=== PATIENT | female | born 1995 | race Caucasian/White ===

== ENCOUNTER 2018-02-27 13:33 | Day surgery (SDC) | payer OTHER ==
[2018-02-27 14:13] LABS: BILIRUBIN,URINE NEGATIVE (NEGATIVE); GLUCOSE, URINE (UA) NEGATIVE (NEGATIVE); KETONES,URINE (UA) NEGATIVE (NEGATIVE); LEUKOCYTE ESTERASE, URINE NEGATIVE (NEGATIVE); NITRITE,URINE NEGATIVE (NEGATIVE); OCCULT BLOOD,URINE LARGE (NEGATIVE); PROTEIN,URINE NEGATIVE (NEGATIVE); UROBILINOGEN,URINE 0.2 (NORMAL) E.U./dL (NORMAL)
[2018-02-27 14:15] LABS: HCG UR QUAL NEGATIVE
[2018-02-27 14:16] LABS: CLARITY,URINE SL. CLOUDY (CLEAR)
[2018-02-27 14:25] LABS: BACTERIA,URINE Few /HPF (None Seen); RBC,URINE 0-5 /HPF (0-5); SQUAMOUS EPITHELIAL CELL,UR FEW Squamous (<= Few)
[2018-02-27] MEDS ORDERED: IBUPROFEN 800 MG TABLET PO STA (14:31)
[2018-02-27 14:36] LABS: BASOPHILS % (AUTO) 0.6 %; EOSINOPHILS # (AUTO) 0.1 10^3/uL (0.0-0.7); EOSINOPHILS % (AUTO) 1.4 %; HGB - HEMOGLOBIN 14.3 g/dL (12.0-16.0); LYMPHOCYTES # (AUTO) 2.4 10^3/uL (1.5-3.5); LYMPHOCYTES % (AUTO) 33.1 %; MEAN CORPUSCULAR HGB CONC 34.3 g/dL (32.0-36.0); MEAN CORPUSCULAR VOLUME 90.4 fL (81.0-99.0); MEAN PLATELET VOLUME 6.7 fL (7.9-10.8); MONOCYTES # (AUTO) 0.5 10^3/uL (0.0-1.0); MONOCYTES % (AUTO) 7.3 %; NEUTROPHILS # (AUTO) 4.2 10^3/uL (1.5-6.6); NEUTROPHILS % (AUTO) 57.6 %; PLT - PLATELET COUNT 388 10^3/uL (130-450); RED BLOOD COUNT 4.61 10^6/uL (4.20-5.40); RED CELL DISTRIBUTION WIDTH 13.7 % (12.0-15.0); WHITE BLOOD COUNT 7.3 x10^3/uL (4.8-10.8)
--- NOTE | 2018-02-27 14:36 | ED Physician Documentation ---
History of Present Illness - Stated complaint Stated Complaint: CRAMPS/FEMALE - Chief complaint Chief Complaint: Abd Pain - Additonal information Additional information: hx from pt 22 y/o f denies preg -has implanted control to ED today with right pelvic pain and heavy vag bleeding (change pad or tampon q2h) for 4 days no fever Review of Systems Constitutional: denies: Fever, Chills GI: reports: Abdominal Pain : reports: Vaginal bleeding. denies: Now EGA Endocrine: denies: Easy bruising / bleeding Immunocompromised: denies: Immunocompromised PD PAST MEDICAL HISTORY - Present Medications Home Medications: Ambulatory Orders Medication Instructions Recorded Confirmed No Known Home Medications 02/27/18 02/27/18 - Allergies Allergies/Adverse Reactions: Allergies Allergy/AdvReac Type Severity Reaction Status Date / Time bee venom protein (honey bee) Allergy Anaphylaxis Verified 02/27/18 13:52 Sulfa (Sulfonamide Allergy Emesis Verified 02/27/18 13:52 Antibiotics) PD ED PE NORMAL - Vitals Vital signs reviewed: Yes - Cardiac Cardiac: RRR - Respiratory Respiratory: No respiratory distress - Abdomen Abdomen: Soft, Non tender - Female Female : Construction Trades Teacher present (nurse Faina), Other (dark blood and some clots in vault seem to be coming for cervix, no lac identified, os closed, no FB seen, no dc, cx taken) - Derm Derm: Normal color - Neuro Neuro: Alert and oriented X 3 Results - Vitals Vitals: Vital Signs - 24 hr 02/27/18 02/27/18 02/27/18 13:48 16:00 17:52 Temperature 36.9 C 36.8 C 36.9 C Heart Rate 78 77 77 Respiratory 18 18 20 Rate Blood Pressure 134/81 H 130/78 144/92 H O2 Saturation 99 99 99 Oxygen O2 Source Room air - Labs Labs: Laboratory Tests 02/27/18 02/27/18 02/27/18 13:55 13:55 14:32 WBC 7.3 RBC 4.61 Hgb 14.3 Hct 41.7 MCV 90.4 MCH 31.0 MCHC 34.3 RDW 13.7 Plt Count 388 MPV 6.7 L Neut # (Auto) 4.2 Lymph # (Auto) 2.4 [place] # (Auto) 0.5 Eos # (Auto) 0.1 Baso # (Auto) 0.0 Absolute Nucleated RBC 0.00 Nucleated RBC % 0.0 Sodium Potassium Chloride Carbon Dioxide Anion Gap BUN Creatinine Estimated GFR (MDRD) Glucose Calcium Total Bilirubin AST ALT Alkaline Phosphatase Total Protein Albumin Globulin Albumin/Globulin Ratio Lipase HCG, Quant Urine Color YELLOW Urine Clarity SL. CLOUDY Urine pH 6.0 Ur Specific [place] 1.015 1.015 Urine Protein NEGATIVE Urine Glucose (UA) NEGATIVE Urine Ketones NEGATIVE Urine Occult Blood LARGE H Urine Nitrite NEGATIVE Urine Bilirubin NEGATIVE Urine Urobilinogen 0.2 (NORMAL) Ur Leukocyte Esterase NEGATIVE Urine RBC 0-5 Urine WBC 0-3 Ur Squamous Epith Cells FEW Squamous Urine Bacteria Few Ur Microscopic Review INDICATED Urine Culture Comments NOT INDICATED Urine HCG, Qual NEGATIVE 02/27/18 02/27/18 14:32 14:33 WBC RBC Hgb Hct MCV MCH MCHC RDW Plt Count MPV Neut # (Auto) Lymph # (Auto) [place] # (Auto) Eos # (Auto) Baso # (Auto) Absolute Nucleated RBC Nucleated RBC % Sodium 135 Potassium 3.7 Chloride 104 Carbon Dioxide 25 Anion Gap 6.0 BUN 12 Creatinine 0.8 Estimated GFR (MDRD) 91 Glucose 83 Calcium 9.2 Total Bilirubin 0.4 AST 17 ALT 16 Alkaline Phosphatase 92 Total Protein 7.7 Albumin 4.4 Globulin 3.3 Albumin/Globulin Ratio 1.3 Lipase 24 HCG, Quant < 0.60 Urine Color Urine Clarity Urine pH Ur Specific [place] Urine Protein Urine Glucose (UA) Urine Ketones Urine Occult Blood Urine Nitrite Urine Bilirubin Urine Urobilinogen Ur Leukocyte Esterase Urine RBC Urine WBC Ur Squamous Epith Cells Urine Bacteria Ur Microscopic Review Urine Culture Comments Urine HCG, Qual - Rads (name of study) pelvic with TV and doppler Radiology: See rad report (complex mass R ovary 6 cm mixed cyst solid with only periph flow and radia is concerned for int torsion, atypical hemorhagic cyst endometroioma is also possible) PD MEDICAL DECISION MAKING - ED course ED course: 6 cm atypical mass with concern for int torsion and or hemorrhage serum quant HCG neg - not ectopic called CRUSHER OPERATOR at 1630 Dr Sheffield promptly to the ER and will take the pt to surgery Departure - Departure Disposition: ED Transfer to [facility] Clinical Impression: Ovarian mass, right Condition: Good
[2018-02-27 14:49] LABS: ALBUMIN 4.4 g/dL (3.2-5.5); ALBUMIN/GLOBULIN RATIO 1.3 (1.0-2.2); BILIRUBIN,TOTAL 0.4 mg/dL (0.2-1.0); CALCIUM 9.2 mg/dL (8.5-10.3); CREATININE 0.8 mg/dL (0.4-1.0); TOTAL PROTEIN 7.7 g/dL (6.7-8.2)
[2018-02-27] MEDS ORDERED: KETOROLAC 60 MG/2 ML VIAL IVP STA (14:54)
[2018-02-27] MEDS ORDERED: KETOROLAC 60 MG/2 ML VIAL IM STA (15:06)
[2018-02-27] MEDS ORDERED: oxyCODONE 5 MG TABLET PO STA (16:05)
--- NOTE | 2018-02-27 16:23 | Ultrasound Report ---
Reason: pelvic pain and bleeding Procedure Date: 02/27/2018 Accession Number: [id number] / [id number] Procedure: US - Pelvic w/Transvag+Doppler Comp CPT Code: FULL RESULT: EXAM: PELVIC ULTRASOUND EXAM DATE: 02/27/2018 03:49 PM. CLINICAL HISTORY: Pelvic pain /right lower quadrant pain for 1 week and heavy vaginal bleeding. Negative serum beta hCG. COMPARISON: None. TECHNIQUE: Realtime transabdominal pelvic scan performed to identify the uterus and adnexa and as an overview of other pelvic structures, followed by transvaginal scan to provide greater detail of the uterus and adnexa, with static image documentation. FINDINGS: Uterus: 7 cm, volume 38.5 cc. Anteverted position. Normal overall size and echotexture. Masses: None. Endometrium: 3 mm. Normal. Cervix: Unremarkable. Right Ovary: 6 x 5 x 6.5 cm, volume 101 cc. Complex mixed cystic and solid appearing mass of the ovary; volume of the finding is roughly 50% fluid and 50% isoechoic/solid-appearing material. There is flow within the thin periphery of this complex mass with minimal to absent vascular signal within the solid/echogenic portions of the mass. Left Ovary: 3 x 1.4 x 1.5 cm, volume 3.3 cc. Normal echotexture and blood flow. Free Fluid: None. Other: None. IMPRESSION: 6 cm complex cystic solid appearing mass of the right ovary as described. Although flow is noted in the periphery, sequela of an ovarian torsion is not excluded by imaging. Atypical hemorrhagic cyst/endometrioma also possible. RADIA The above findings were discussed with oDminique Zimmerman by Dr. Samuel Perez at 16:21 hrs on 02/27/18.
[2018-02-27] MEDS ORDERED: ONDANSETRON 4 MG/2 ML VIAL IVP STA (16:38)
[2018-02-27] MEDS ORDERED: MORPHINE 2 MG/ML CARPUJECT IVP STA (16:38)
[2018-02-27] MEDS ORDERED: SODIUM CHLORIDE 0.9% 1,000 ML IV ONE (16:38)
[2018-02-27] MEDS ORDERED: GABAPENTIN 100 MG CAPSULE PO STA (18:04)
[2018-02-27] MEDS ORDERED: CELECOXIB 100 MG CAPSULE PO STA (18:04)
--- NOTE | 2018-02-27 18:09 | ANESTHESIA ---
Pre-Anesthesia VS, & Labs - Diagnosis R lower quad pain - Procedure diagnostic laparoscopy Vital Signs: Temp Pulse Resp BP Pulse Ox 36.9 C 77 20 144/92 H 99 02/27/18 17:52 02/27/18 17:52 02/27/18 17:52 02/27/18 17:52 02/27/18 17:52 Height 5 ft 6 in Weight (kg) 89.811 kg Body Mass Index 31.9 - NPO Other (pizza@1300) Last Fluid Intake: water@1700 sips - Is Patient ?: No - Lab Results Current Lab Results: Laboratory Tests 02/27/18 14:33: HCG, Quant < 0.60 02/27/18 14:32: Sodium 135, Potassium 3.7, Chloride 104, Carbon Dioxide 25, Anion Gap 6.0, BUN 12, Creatinine 0.8, Estimated GFR (MDRD) 91, Glucose 83, Calcium 9.2, Total Bilirubin 0.4, AST 17, ALT 16, Alkaline Phosphatase 92, Total Protein 7.7, Albumin 4.4, Globulin 3.3, Albumin/Globulin Ratio 1.3, Lipase 24 02/27/18 14:32: WBC 7.3, RBC 4.61, Hgb 14.3, Hct 41.7, MCV 90.4, MCH 31.0, MCHC 34.3, RDW 13.7, Plt Count 388, MPV 6.7 L, Neut # (Auto) 4.2, Lymph # (Auto) 2.4, [place] # (Auto) 0.5, Eos # (Auto) 0.1, Baso # (Auto) 0.0, Absolute Nucleated RBC 0.00, Nucleated RBC % 0.0 Lab results reviewed: Yes Fish Bones: 02/27/18 14:32 02/27/18 14:32 Home Medications and Allergies Home Medications: Ambulatory Orders No Known Home Medications 02/27/18 No Known Home Medications 02/27/18 Allergies/Adverse Reactions: Allergies Allergy/AdvReac Type Severity Reaction Status Date / Time bee venom protein (honey bee) Allergy Anaphylaxis Verified 02/27/18 13:52 Sulfa (Sulfonamide Allergy Emesis Verified 02/27/18 13:52 Antibiotics) Anes History & Medical History - Anesthetic History Anesthesia Complications: reports: No previous complications Family history of Anesthesia Complications: Denies Family history of Malignant Hyperthermia: Denies - Medical History Smoking Status: Current every day smoker Exam General: Alert, Oriented x3, Cooperative Dental: WNL Mouth Opening: Greater than 4 Fingerbreadths Neck Mobility: Normal Mallampati classification: II Thyromental Distance: greater than 6 cm Respiratory: Lungs clear, Normal breath sounds, No respiratory distress Cardiovascular: Regular rate Neurological: Normal speech Mental/Cognitive Status: Alert/Oriented X3, Normal for patient Cognitive Status: Within normal limits Plan Anesthesia Type: General Consent for Procedure(s) Verified and Reviewed: Yes Code Status: Attempt Resuscitation ASA classification: 2-Mild systemic disease Is this case an emergency?: Yes
[2018-02-27] MEDS ORDERED: BUPIVACAINE 0.5%-EPI 1:200000 PF 30 ML VIAL ONE (18:18)
--- NOTE | 2018-02-27 18:59 | PREOP HISTORY & PHYSICAL ---
DATE OF ADMISSION: 02/27/2018 Physician: Sally Sheffield DO FACOG IDENTIFICATION: This is a 22-year-old G0, LMP 01/19/2018. HISTORY OF PRESENT ILLNESS: This is a patient of the [facility] [employer] who presented with complaints of pain for over a week. Approximately 10 days ago, she noted some pain in her right side. Then, the preceding next 2 days, the pain became more and more steady. About a week went by, and she started having some vaginal bleeding. Although that was approximately 3 days ago. The pain became so intense to the point that it felt like, sharp, squeezing pressure-like pain in the right lower quadrant. She became dizzy and nauseated because of this pain. This pain was similar to an episode she had in [place] in 2013. This spontaneously resolved. Patient did want a workup for this pain, but no one thought that there was enough evidence to proceed with a further workup. Here in the emergency department the patient has been getting oral oxycodone as well as IV morphine. This has dulled the pain, but she still has pretty significant pain. She denies any vomiting, constipation or diarrhea. She also denies any fevers or chills. She is accompanied today with her friend Rigoberto. PAST MEDICAL HISTORY: Obesity, otherwise none. She denies hypertension, diabetes, anxiety, depression, or asthma. PAST SURGICAL HISTORY: Dental surgery. ALLERGIES 1. SULFA, TO WHICH SHE HAS VOMITING. 1. BEE VENOM, TO WHICH SHE HAS ANAPHYLAXIS. MEDICATIONS: 05/07/2015 Nexplanon. SOCIAL HISTORY: She does vape and uses about 1 pot of vaping material in 2 weeks. She denies any alcohol or illicit drug use. 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 Her friend Rigoberto also is in the [employer] and is an marine engineering technicians. PAST OBSTETRICAL HISTORY: She is nulligravida, and she does not want any children. PAST GYNECOLOGICAL HISTORY: She has never had a Pap smear. She was treated for gonorrhea in November 2016. She denies any pelvic inflammatory disease. Patient states that she does have irregular spotting on the Nexplanon. However, previous to the Nexplanon, she had monthly menses that happened very consistently. However, her periods are very heavy in which she would change a tampon every 2 hours. Patient also had cramping pain, which was described as a 4-5/10. Ibuprofen did help, so that the patient could go on her daily activities. FAMILY HISTORY: Maternal grandmother had a hysterectomy for unknown reasons. REVIEW OF SYSTEMS: Negative unless otherwise stated. OBJECTIVE VITAL SIGNS: Temperature is 36.8, heart rate 77, respiratory rate 18, blood pressure 130/78, O2 saturation 99%. GENERAL: Patient is an obese, very pleasant, female. She is alert and oriented x3. HEENT: Within normal limits. HEART: Rate is regular. No murmurs or rubs. LUNGS: Lungs are clear to auscultation bilaterally. ABDOMEN: Soft, but very tender. No peritoneal signs. EXTREMITIES: She does have multiple tattoos. LABORATORY DATA: Show a white count of 7.3, H and H of 14.3 and 41.7, platelets 388. A urinalysis is negative as well as a urine test. Potassium 3.7, creatinine 0.8, glucose 83, AST 17, ALT 16. Pelvic ultrasound revealed a uterus at 7 cm and anteverted. Endometrium is 3 mm. Right ovary measures 6 x 5 x 6.5 cm complex mixed cystic and solid appearing mass of the ovary, with a finding is roughly 50% fluid and 50% isoechoic/solid appearing material. There is flow within the thin periphery of this complex mass with minimal to absent vascular signal within the solid/echogenic portions of the mass. Left ovary measures 3 x 1.4 x 1.5 cm. Normal echotexture and blood flow. Free fluid, none. ASSESSMENT 1. A 22-year-old G0. 2. Right ovarian mass. 3. Right ovarian torsion. PLAN 1. I recommend to the patient that she proceed to a diagnostic laparoscopy with a possible right ovarian cystectomy. Included in the discussion were the risk of hemorrhage, infection, damage to surrounding organs, which may include inadvertent laceration, cauterization or ligation of the adjacent intestines, ureters, and bowels. Furthermore, at this procedure, although I would like to avoid this, she may have to have an oophorectomy, depending on how much ovarian tissue is present and its location. We did reassure the patient that she only needs one ovary to have normal ovarian function and potential for reproduction. After the patient's questions were answered to her satisfaction, she verbalized her desire to proceed with surgery. Consent forms have been signed. 2. Anticipate sending the patient home later this evening with a prescription of Vicodin for breakthrough pain that ibuprofen and Tylenol do not take care of. 3. I anticipate seeing the patient in 2 weeks for routine postop visit. 4. Anticipate calling the patient's stepfather, Lb, and giving them an update on their daughter's condition. TD: 02/27/2018 18:14 ROD
[2018-02-27] MEDS ORDERED: CELECOXIB 100 MG CAPSULE PO SCH (19:00)
[2018-02-27] MEDS ORDERED: GABAPENTIN 400 MG CAPSULE PO SCH (19:00)
[2018-02-27] MEDS ORDERED: ACETAMINOPHEN 1,000 MG/100 ML 100 ML IV ONE (19:30)
[2018-02-27] MEDS ORDERED: PROPOFOL 200 MG/20 ML VIAL IVP ONE (19:30)
[2018-02-27] MEDS ORDERED: NEOSTIGMINE 1 MG/1 ML 10 ML MDV IVP ONE (19:30)
[2018-02-27] MEDS ORDERED: ONDANSETRON 4 MG/2 ML VIAL IVP ONE (19:30)
[2018-02-27] MEDS ORDERED: MIDAZOLAM 2 MG/2 ML VIAL IVP ONE (19:30)
[2018-02-27] MEDS ORDERED: LIDOCAINE-MPF 2% 5 ML VIAL IM ONE (19:30)
[2018-02-27] MEDS ORDERED: fentaNYL 100 MCG/2 ML VIAL IVP ONE (19:30)
[2018-02-27] MEDS ORDERED: ROCURONIUM 50 MG/5 ML VIAL IVP ONE (19:30)
[2018-02-27] MEDS ORDERED: SUCCINYLCHOLINE 200 MG/10 ML VIAL IVP ONE (19:30)
[2018-02-27] MEDS ORDERED: DEXAMETHASONE 4 MG/ML VIAL IVP ONE (19:30)
[2018-02-27] MEDS ORDERED: GLYCOPYRROLATE 1 MG/5 ML VIAL IVP ONE (19:30)
[2018-02-27] MEDS ORDERED: BUPIVACAINE 0.5%-EPI 1:200000 PF 30 ML VIAL SUBQ ONE ×2 (19:32)
[2018-02-27] MEDS ORDERED: LACTATED RINGERS 1,000 ML IV ONE ×2 (20:28→20:55)
[2018-02-27] MEDS ORDERED: ONDANSETRON 4 MG/2 ML VIAL IVP PRN (20:34)
[2018-02-27] MEDS ORDERED: HYDROcod/ACETAM 5/325 MG TABLET PO PRN (20:34)
[2018-02-27] MEDS ORDERED: LORazepam 2 MG/ML VIAL IVP PRN (20:34)
--- NOTE | 2018-02-27 20:34 | OPERATIVE REPORT ---
Operative Report - Other Other Information/Narrative: Date of operation: 02/27/2018 Surgeon: Sally Sheffield DO FACOG Cloth Beamer: None Anesthesiology Medical Doctor: Terell An CRNA Anesthesia: GET Pre-op Dx: 1. 22 yo G0 2. Right ovarian mass 3. Right ovarian torsion Post-op Dx: 1. 22 yo G0 2. Right ovarian mass Procedure: Laparoscopic right ovarian cystectomy Findings: Normal uterus, bilateral fallopian tubes, and left ovary. Enlarged right ovary with cystic mass. Normal appendix and liver edge. Specimens: Right cyst wall Drains: None EBL: 20 mL Complications: None [id number]
[2018-02-27] MEDS: HYDROmorphone 1 MG/ML CARPUJECT ONE ×2 (20:39→20:50)
[2018-02-27] MEDS: fentaNYL 100 MCG/2 ML VIAL ONE ×3 (21:01→21:33)
[2018-02-27] MEDS ORDERED: HYDROcod/ACETAM 5/325 MG TABLET ONE (21:31)
[2018-02-27] MEDS: HYDROmorphone 0.5 MG/0.5 ML SYRINGE IVP PRN (23:00)
[2018-02-28] MEDS: HYDROmorphone 0.5 MG/0.5 ML SYRINGE IVP PRN ×3 (00:07→02:24)
[2018-02-28] MEDS ORDERED: SODIUM CHLORIDE FLUSH 0.9% 10 ML SYRINGE ONE (02:29)
[2018-02-28 03:35] VITALS: BP 117/63
--- NOTE | 2018-02-28 05:26 | OPERATIVE REPORT ---
DATE OF OPERATION: 02/27/2018 PREOPERATIVE DIAGNOSES 1. A 22-year-old G0. 2. Right ovarian mass. 3. Right ovarian torsion. POSTOPERATIVE DIAGNOSES 1. A 22-year-old G0. 2. Right ovarian mass. PROCEDURE: Laparoscopic right ovarian cystectomy. SURGEON: Sally Sheffield D.O., FACOG DEFLASH AND WASH OPERATOR: None. PROFESSIONAL DEVELOPMENT DIRECTOR: Terell An CRNA. ANESTHESIA: General endotracheal tube. FINDINGS: Normal uterus, bilateral fallopian tubes and left ovary. Enlarged right ovary with cystic mass. Normal appendix and liver edge. No ovarian torsion. SPECIMENS: Right cyst wall. DRAINS: None. ESTIMATED BLOOD LOSS: 20 mL COMPLICATIONS: None. BRIEF HISTORY: Kemi is a patient of the [facility] who presented to the emergency department with complaints of right lower quadrant pain. Workup showed that she was not , but that there was a large, 6 cm right ovary. There was a concern for ovarian torsion as there was little to no blood flow. I discussed with Kemi the risks, benefits, alternatives, indications, and expectations of a diagnostic laparoscopy with possible right ovarian cystectomy. Included in the discussion were the risks of hemorrhage, infection, damage to surrounding organs, which may include but are not limited to an inadvertent laceration, cauterization or ligation of the adjacent ureters, intestines and bladder. Furthermore, with the surgery there is a possibility that I might have to perform an oophorectomy on the right side. I would prefer not to do this, but only would do it as a last ditch effort. After patient's questions were answered to her satisfaction, she verbalized her desire to proceed with surgery. Consent forms have been signed. OPERATION IN DETAIL: Patient was identified, consented and taken to the operating room where IV access was already in place. She was then given sequential compression devices, which were placed on her lower extremities and turned on. The bladder was then drained with an in and out catheter. Patient was given satisfactory general endotracheal tube anesthesia. Patient was then prepped and draped in normal sterile fashion in the supine position. A timeout was performed which correctly identified the patient, site of the procedure and the procedures themselves. Three laparoscopic port sites were first identified. A 5 mm port was in the subumbilical fold and another 5 mm port in the right lower quadrant 2 fingerbreadths superior and medial to the anterior superior iliac spine, and then a 12 mm port in the left lower quadrant after finding the respective anterior superior iliac spine and then moving again 2 fingerbreadths medial and superior to this location. These port sites were then injected with 0.25% bupivacaine with epinephrine. A total of 20 mL was used. Stab incisions were made. Entrance to the abdomen was first made with a Visiport trocar in the subumbilical fold. No damage to intra-abdominal organ was noted. Insufflation was then proceeded and a satisfactory pneumoperitoneum obtained. Two ports were placed under direct visualization of the camera. Exploration of the pelvis revealed a normal uterus, bilateral fallopian tubes and left ovary. There was a very large right ovary, as described on the ultrasound. The appendix and liver edge did look normal. An incision was made in the thinnest portion of the ovary. The cyst was inadvertently lacerated and large amount of thin, bloody liquid was seen. This was drained with the suction. After the ovarian cyst was decompressed, the cystic wall was then bluntly dissected off the ovary. Specimen was then sent off to Pathology. The ovary was still noted to be having some oozing and Surgicel was placed in the bed of the ovarian cystectomy. Hemostasis was noted. At this point in time, the procedure had been completed. All instruments were removed out of the abdomen and the CO2 was allowed to egress into the atmosphere, relieving the pneumoperitoneum. The 12 mm port site was closed with a 0 Vicryl using the Doug-Pranav closure system. All laparoscopic port sites were then closed with 4-0 Monocryl in subcuticular fashion. Dermabond was finally placed on top. Patient tolerated the procedure well and was taken back to recovery room in stable condition. All sponge, lap, and needle counts were correct x3 as per nurse's report. Patient will be discharged to home later today after postoperative criteria are met. She is to see me in 2 weeks, and will be given a prescription for Vicodin for breakthrough pain that ibuprofen or Tylenol does not take care of. TD: 02/27/2018 20:44 ROD
== END 2018-02-28 03:58 | disposition home or self-care (01) ==
LOC: ED 13:33 → SDS 17:41 → MS2 21:45 → SDS 02-28 03:58
PROVIDERS: ATTEND Obstetrics & Gynecology
PROC: 0UB04ZZ Excision of Right Ovary, Percutaneous Endoscopic Approach (ICD-10-PCS; principal; 2018-02-27 19:00)
DX: N83.01 Follicular cyst of right ovary (principal); N92.0 Excessive and frequent menstruation with regular cycle; E66.9 Obesity, unspecified; F17.290 Nicotine dependence, other tobacco product, uncomplicated; Z68.31 Body mass index [BMI] 31.0-31.9, adult; Z86.19 Personal history of other infectious and parasitic diseases; Z79.899 Other long term (current) drug therapy
CPT/HCPCS: 36415; 58662; 76830; 76856; 80053; 81001; 81025; 83690; 84702; 85025; 87491; 87591; 93975; 96361; 96372; 96374; 99283; 99284; A9270; J0131; J0330; J1170; J2060; J7120; 81003; 87086

== ENCOUNTER 2018-03-06 18:37 | Outpatient (CLI) | payer OTHER | END 2018-03-06 18:38 | disposition critical access hospital (66) | LOC: EMS 18:37 | PROVIDERS: ATTEND Surgery | DX: R55 Syncope and collapse (principal) ==

== ENCOUNTER 2018-03-06 18:58 | Emergency (ER) | payer OTHER ==
[2018-03-06] MEDS ORDERED: SODIUM CHLORIDE 0.9% 1,000 ML IV ONE (19:43)
[2018-03-06] MEDS ORDERED: ONDANSETRON 4 MG/2 ML VIAL IVP STA (19:47)
[2018-03-06] MEDS ORDERED: HYDROmorphone 1 MG/ML CARPUJECT IVP STA (19:47)
--- NOTE | 2018-03-06 19:49 | ED Physician Documentation ---
PD HPI ABD PAIN - Stated complaint Stated Complaint: SYNCOPE - Chief complaint Chief Complaint: Abd Pain - History obtained from History obtained from: Patient, Friend - History of Present Illness Timing - onset: Today (She is 7 days out from a laparoscopic ovarian cystectomy due to torsion. She has had persistent pain ever since but not worsening per se. She has light vaginal bleeding. Today she was in a hot shower and she got dizzy and passed out. There was no injury.) Review of Systems Constitutional: denies: Fever, Chills Cardiac: denies: Chest pain / pressure, Palpitations Respiratory: denies: Dyspnea, Cough PD PAST MEDICAL HISTORY - Past Medical History Past Medical History: No Cardiovascular: None Respiratory: None Neuro: None Endocrine/Autoimmune: None GI: None RETAIL ACCOUNT MANAGER: None : None HEENT: None Psych: None Musculoskeletal: None Derm: None - Past Surgical History Past Surgical History: No /RETAIL ACCOUNT MANAGER: Other - Present Medications Home Medications: Ambulatory Orders Medication Instructions Recorded Confirmed Morphine Ir [Ms Ir] 15 mg PO Q6H PRN #20 tablet 03/06/18 Ondansetron HCl [Zofran] 4 mg PO 03/06/18 Ondansetron Odt [Zofran] 4 mg TL Q6H PRN #10 tablet 03/06/18 oxyCODONE [Roxicodone] 10 mg PO Q6H 03/06/18 03/06/18 - Allergies Allergies/Adverse Reactions: Allergies Allergy/AdvReac Type Severity Reaction Status Date / Time bee venom protein (honey bee) Allergy Anaphylaxis Verified 03/06/18 19:08 Sulfa (Sulfonamide Allergy Emesis Verified 03/06/18 19:08 Antibiotics) - Social History Does the pt smoke?: Yes Smoking Status: Current every day smoker Does the pt drink ETOH?: No Does the pt have substance abuse?: No - Immunizations Immunizations are current?: Yes - POLST Patient has POLST: No PD ED PE NORMAL - Vitals Vital signs reviewed: Yes - General General: Alert and oriented X 3, No acute distress - HEENT HEENT: PERRL, EOMI - Neck Neck: Supple, no meningeal sign, No bony TTP - Cardiac Cardiac: RRR, No murmur - Respiratory Respiratory: No respiratory distress, Clear bilaterally - Abdomen Abdomen: Normal bowel sounds, Soft, Non tender, Other (Lap scopic sites clean dry and intact with Dermabond in place) - Extremities Extremities: No edema, No calf tenderness / cord - Neuro Neuro: Alert and oriented X 3, Normal speech - Psych Psych: Normal mood, Normal affect Results - Vitals Vitals: Vital Signs - 24 hr 03/06/18 03/06/18 19:03 21:51 Temperature 36.3 C L 36.6 C Heart Rate 69 79 Respiratory 18 20 Rate Blood Pressure 123/85 H 123/79 O2 Saturation 100 100 Oxygen O2 Source Room air - EKG (time done) 2008 Rate: Rate (enter#) (69) Rhythm: NSR [place]: Normal Intervals: Normal NE QRS: Normal Ischemia: Normal ST segments Computer interpretation: Agree with computer - Labs Labs: Laboratory Tests 03/06/18 03/06/18 03/06/18 20:10 20:10 21:03 WBC 16.1 H RBC 4.54 Hgb 14.6 Hct 41.2 MCV 90.8 MCH 32.1 H MCHC 35.4 RDW 13.1 Plt Count 412 MPV 6.9 L Neut # (Auto) 13.8 H Lymph # (Auto) 1.4 L [place] # (Auto) 0.8 Eos # (Auto) 0.1 Baso # (Auto) 0.0 Absolute Nucleated RBC 0.00 Nucleated RBC % 0.0 Sodium 135 Potassium 3.9 Chloride 101 Carbon Dioxide 28 Anion Gap 6.0 BUN 11 Creatinine 0.8 Estimated GFR (MDRD) 91 Glucose 104 H Calcium 9.6 Total Bilirubin 0.5 AST 19 ALT 32 Alkaline Phosphatase 79 Total Protein 8.0 Albumin 4.7 Globulin 3.3 Albumin/Globulin Ratio 1.4 Lipase 24 Urine Color YELLOW Urine Clarity CLEAR Urine pH 6.0 Ur Specific [place] 1.015 Urine Protein NEGATIVE Urine Glucose (UA) NEGATIVE Urine Ketones NEGATIVE Urine Occult Blood TRACE-LYSE Urine Nitrite NEGATIVE Urine Bilirubin NEGATIVE Urine Urobilinogen 0.2 (NORMAL) Ur Leukocyte Esterase NEGATIVE Ur Microscopic Review NOT INDICATED Urine Culture Comments NOT INDICATED Urine HCG, Qual NEGATIVE PD MEDICAL DECISION MAKING - ED course ED course: 22-year-old woman presents with postoperative pain and a syncopal episode probably multifactorial from dehydration due to poor oral intake and pelvic pain. Workup demonstrates unremarkable CBC and vital signs and Feeling better after pain medications and and IV fluids here. Departure - Departure Disposition: 01 Home, Self Care Clinical Impression: Pelvic pain Syncope Qualifiers: Syncope type: vasovagal syncope Qualified Code(s): R55 - Syncope and collapse Condition: Good Record reviewed to determine appropriate education?: Yes Instructions: ED Syncope Vasovagal Prescriptions: Morphine Ir [Ms Ir] 15 mg PO Q6H PRN #20 tablet PRN Reason: Pain Ondansetron Odt [Zofran] 4 mg TL Q6H PRN #10 tablet PRN Reason: Nausea / Vomiting Comments: Call your doctor to arrange a follow-up appointment, make the next available appointment. In the interim, return anytime if worse or if new symptoms develop.
[2018-03-06 20:32] LABS: BASOPHILS % (AUTO) 0.2 %; EOSINOPHILS # (AUTO) 0.1 10^3/uL (0.0-0.7); EOSINOPHILS % (AUTO) 0.5 %; HGB - HEMOGLOBIN 14.6 g/dL (12.0-16.0); LYMPHOCYTES # (AUTO) 1.4 10^3/uL (1.5-3.5); LYMPHOCYTES % (AUTO) 8.7 %; MEAN CORPUSCULAR HEMOGLOBIN 32.1 pg (27.0-31.0); MEAN CORPUSCULAR HGB CONC 35.4 g/dL (32.0-36.0); MEAN CORPUSCULAR VOLUME 90.8 fL (81.0-99.0); MEAN PLATELET VOLUME 6.9 fL (7.9-10.8); MONOCYTES # (AUTO) 0.8 10^3/uL (0.0-1.0); MONOCYTES % (AUTO) 4.8 %; NEUTROPHILS # (AUTO) 13.8 10^3/uL (1.5-6.6); NEUTROPHILS % (AUTO) 85.8 %; PLT - PLATELET COUNT 412 10^3/uL (130-450); RED BLOOD COUNT 4.54 10^6/uL (4.20-5.40); RED CELL DISTRIBUTION WIDTH 13.1 % (12.0-15.0); WHITE BLOOD COUNT 16.1 x10^3/uL (4.8-10.8)
[2018-03-06 20:44] LABS: ALBUMIN 4.7 g/dL (3.2-5.5); ALBUMIN/GLOBULIN RATIO 1.4 (1.0-2.2); BILIRUBIN,TOTAL 0.5 mg/dL (0.2-1.0); CALCIUM 9.6 mg/dL (8.5-10.3); CREATININE 0.8 mg/dL (0.4-1.0)
[2018-03-06 21:15] LABS: BILIRUBIN,URINE NEGATIVE (NEGATIVE); GLUCOSE, URINE (UA) NEGATIVE (NEGATIVE); KETONES,URINE (UA) NEGATIVE (NEGATIVE); LEUKOCYTE ESTERASE, URINE NEGATIVE (NEGATIVE); NITRITE,URINE NEGATIVE (NEGATIVE); OCCULT BLOOD,URINE TRACE-LYSE (NEGATIVE); PROTEIN,URINE NEGATIVE (NEGATIVE); UROBILINOGEN,URINE 0.2 (NORMAL) E.U./dL (NORMAL)
[2018-03-06 21:16] LABS: CLARITY,URINE CLEAR (CLEAR)
[2018-03-06 21:17] LABS: HCG UR QUAL NEGATIVE
[2018-03-06] MEDS ORDERED: MORPHINE IR 15 MG TABLET PO STA (21:45)
[2018-03-06 21:52] VITALS: BP 123/79
== END 2018-03-06 22:00 | disposition home or self-care (01) ==
LOC: EDUNIT# → ED 18:58
DX: R55 Syncope and collapse (principal); G89.18 Other acute postprocedural pain; R10.2 Pelvic and perineal pain; F17.200 Nicotine dependence, unspecified, uncomplicated
CPT/HCPCS: 36415; 80053; 81003; 81025; 83690; 85025; 93005; 96361; 96374; 96375; 99283; A9270; J1170; 81001; 87086

== ENCOUNTER 2018-03-29 09:43 | Emergency (ER) | payer OTHER ==
[2018-03-29 10:09] LABS: BILIRUBIN,URINE NEGATIVE (NEGATIVE); GLUCOSE, URINE (UA) NEGATIVE (NEGATIVE); KETONES,URINE (UA) NEGATIVE (NEGATIVE); LEUKOCYTE ESTERASE, URINE NEGATIVE (NEGATIVE); NITRITE,URINE NEGATIVE (NEGATIVE); OCCULT BLOOD,URINE NEGATIVE (NEGATIVE); PH,URINE 6.5 PH (5.0-7.5); PROTEIN,URINE NEGATIVE (NEGATIVE); UROBILINOGEN,URINE 0.2 (NORMAL) E.U./dL (NORMAL)
[2018-03-29 10:11] LABS: CLARITY,URINE CLEAR (CLEAR)
--- NOTE | 2018-03-29 10:28 | ED Physician Documentation ---
History of Present Illness - Stated complaint Stated Complaint: POST SURGERY COMPLICATIONS/FEMALE - Chief complaint Chief Complaint: UTI - Additonal information Additional information: hx from pt and EMR 22 f AD seen in our ER 02/27 and taken to surgery by Dr Sheffield for a 6 vm ovarian cyst and concern for torsion on doppler sono, surgery was laprascopic has had pain since surgery was seen by Dr Sheffield in fup now with vag dc as well - cloudy and pink and dysuria concern for infection Review of Systems Constitutional: reports: Fatigue. denies: Fever, Chills Cardiac: denies: Chest pain / pressure Respiratory: denies: Dyspnea GI: reports: Abdominal Pain. denies: Nausea, Vomiting : reports: Dysuria, Discharge Musculoskeletal: reports: Back pain (lower) Endocrine: denies: Easy bruising / bleeding Immunocompromised: denies: Immunocompromised PD PAST MEDICAL HISTORY - Past Medical History Past Medical History: Yes Cardiovascular: None Respiratory: None Neuro: None Endocrine/Autoimmune: None GI: None TITLE DEPARTMENT MANAGER: None : None HEENT: None Psych: None Musculoskeletal: None Derm: None Other Past Medical History: ovarian cyst - Past Surgical History Past Surgical History: Yes General: Other /TITLE DEPARTMENT MANAGER: Other - Present Medications Home Medications: Ambulatory Orders Medication Instructions Recorded Confirmed Doxycycline Hyclate 100 mg PO BID #20 capsule 03/29/18 Etonogestrel [Nexplanon] 1 03/29/18 traMADol [Ultram] 50 mg PO Q6H PRN #15 tablet 03/29/18 - Allergies Allergies/Adverse Reactions: Allergies Allergy/AdvReac Type Severity Reaction Status Date / Time bee venom protein (honey bee) Allergy Anaphylaxis Verified 03/06/18 19:08 Sulfa (Sulfonamide Allergy Emesis Verified 03/29/18 09:51 Antibiotics) - Social History Does the pt smoke?: Yes Smoking Status: Current every day smoker Does the pt drink ETOH?: Yes Does the pt have substance abuse?: No - Immunizations Immunizations are current?: Yes - POLST Patient has POLST: No PD ED PE NORMAL - Vitals Vital signs reviewed: Yes - General General: Alert and oriented X 3 - Cardiac Cardiac: RRR - Respiratory Respiratory: No respiratory distress, Clear bilaterally - Abdomen Abdomen: Soft, Other (mod TTP entire lower pelvic region s peritoneal sx) - Female Female : [employer] present ([place]), Other (bloody purulent cervical dc and mild CMT) - Derm Derm: Normal color - Extremities Extremities: No deformity - Neuro Neuro: Alert and oriented X 3 Results - Vitals Vitals: Vital Signs - 24 hr 03/29/18 09:49 Temperature 36.4 C L Heart Rate 85 Respiratory 16 Rate Blood Pressure 143/89 H O2 Saturation 100 Oxygen O2 Source Room air - Labs Labs: Laboratory Tests 03/29/18 03/29/18 10:00 10:00 Urine Color YELLOW Urine Clarity CLEAR Urine pH 6.5 Ur Specific [place] <=1.005 <=1.005 Urine Protein NEGATIVE Urine Glucose (UA) NEGATIVE Urine Ketones NEGATIVE Urine Occult Blood NEGATIVE Urine Nitrite NEGATIVE Urine Bilirubin NEGATIVE Urine Urobilinogen 0.2 (NORMAL) Ur Leukocyte Esterase NEGATIVE Ur Microscopic Review NOT INDICATED Urine Culture Comments NOT INDICATED Urine HCG, Qual NEGATIVE - Rads (name of study) pelvic sono Radiology: See rad report (4.3 X 2.6X3.7 cm complex right ovarian cyst - no torsion this time - no FF) Departure - Departure Disposition: 01 Home, Self Care Clinical Impression: PID (acute pelvic inflammatory disease) Ovarian cyst Qualifiers: Laterality: right Qualified Code(s): N83.201 - Unspecified ovarian cyst, right side Condition: Good Instructions: ED PID, ED Cyst Ovarian Follow-Up: Sally Sheffield DO [Provider Admit Priv/Credential] - [facility] [Provider Group] Prescriptions: Doxycycline Hyclate 100 mg PO BID #20 capsule traMADol [Ultram] 50 mg PO Q6H PRN #15 tablet PRN Reason: Severe Pain Comments: You have a new complex right ovarian cyst - it is not torsed or ruptured so no surgery needed today - but follow up ultrasounds are recommended - please follow up with Dr Sheffield Also on exam today you appear to have a cervix and uterus infection - this could be from a variety of causes ranging from surgery to STDs - cultures are being run to try and determine the cause Based on the radiology report I do not think the cyst on the ovary is an abscess but please follow up with Dr Sheffield for a recheck in the next week Forms: Activity restrictions
[2018-03-29] MEDS ORDERED: oxyCODONE 5 MG TABLET PO STA ×2 (11:03→13:14)
[2018-03-29 11:50] LABS: HCG UR QUAL NEGATIVE
--- NOTE | 2018-03-29 13:27 | Ultrasound Report ---
Reason: peliv pain a month after surgery for torsion Procedure Date: 03/29/2018 Accession Number: [id number] / [id number] Procedure: US - Pelvic w/Transvag+Doppler Comp CPT Code: FULL RESULT: EXAM: PELVIC ULTRASOUND EXAM DATE: 03/29/2018 01:01 PM. CLINICAL HISTORY: 22-year-old G0 female. Pelvic pain a month after surgery for torsion. COMPARISON: PEL NON OB W/TV DOP 02/27/2018 3:10 PM. TECHNIQUE: Realtime transabdominal pelvic scan performed to identify the uterus and adnexa and as an overview of other pelvic structures, followed by transvaginal scan to provide greater detail of the uterus and adnexa, with static image documentation. FINDINGS: Uterus: 8.5 x 3.2 x 3.2 cm, volume 46 cc. Anteverted position. Normal overall size and echotexture. Masses: None. Endometrium: 2.6 mm. Normal. Cervix: 1.2 x 0.6 x 0.8 cm posterior nabothian cyst. Right Ovary: 5.9 x 2.9 x 5.0 cm, volume 44 cc. Normal blood flow. 4.3 x 2.6 x 3.7 cm mildly complex cyst, difficult to assess because of artifactual echoes, but certainly similar in appearance than the large right ovarian cyst seen previously. Left Ovary: 2.7 x 1.6 x 1.6 cm, volume 3.6 cc. Normal echotexture and blood flow. Free Fluid: None. Other: None. IMPRESSION: 1. 4.3 x 2.6 x 3.7 cm mildly complex right ovarian cyst, slightly smaller and considerably simpler in appearance than the cyst seen previously in the right ovary. Arterial blood flow is present at the periphery of the right ovary, without evidence of torsion. 2. Otherwise negative pelvic ultrasound. RADIA
[2018-03-29] MEDS ORDERED: LIDOCAINE 1% 2 ML VIAL SUBQ ONE (15:20)
[2018-03-29] MEDS ORDERED: cefTRIAXone 250 MG VIAL IM STA (15:20)
[2018-03-29] MEDS ORDERED: traMADol 50 MG TABLET PO STA (15:20)
[2018-03-29 15:59] VITALS: BP 123/74
== END 2018-03-29 15:58 | disposition home or self-care (01) ==
LOC: ED 09:43
DX: N73.9 Female pelvic inflammatory disease, unspecified (principal); N83.201 Unspecified ovarian cyst, right side; F17.200 Nicotine dependence, unspecified, uncomplicated; Z98.890 Other specified postprocedural states
CPT/HCPCS: 76830; 76856; 81003; 81025; 87210; 87491; 87591; 93975; 96372; 99283; A9270; 81001; 87086

== ENCOUNTER 2018-04-20 12:20 | Emergency (ER) | payer OTHER ==
[2018-04-20 13:25] LABS: BILIRUBIN,URINE NEGATIVE (NEGATIVE); GLUCOSE, URINE (UA) NEGATIVE (NEGATIVE); KETONES,URINE (UA) TRACE mg/dL (NEGATIVE); LEUKOCYTE ESTERASE, URINE NEGATIVE (NEGATIVE); NITRITE,URINE NEGATIVE (NEGATIVE); OCCULT BLOOD,URINE SMALL (NEGATIVE); PROTEIN,URINE NEGATIVE (NEGATIVE); UROBILINOGEN,URINE 0.2 (NORMAL) E.U./dL (NORMAL)
[2018-04-20 13:28] LABS: CLARITY,URINE CLEAR (CLEAR); HCG UR QUAL NEGATIVE
[2018-04-20 13:39] LABS: BACTERIA,URINE Rare /HPF (None Seen); RBC,URINE 0-5 /HPF (0-5); SQUAMOUS EPITHELIAL CELL,UR RARE Squamous (<= Few)
[2018-04-20] MEDS ORDERED: KETOROLAC 60 MG/2 ML VIAL IM STA (13:46)
--- NOTE | 2018-04-20 13:50 | ED Physician Documentation ---
History of Present Illness - Stated complaint Stated Complaint: FEMALE - Additonal information Additional information: hx from pt [address] Sheffield for 6 cm R ovarian cyst seen by me mid March and had recurrent complex 4 cm R ovarian cyst also vag dc and CMT txed for PID and referred back to Dr Sheffield but did not get permission to see Dr Sheffield [place] Nexplanon removed and started on ortho cylin now with more pain and vag bleding pad q2 hr started today (spont not after intercourse) Review of Systems Constitutional: denies: Fever Cardiac: denies: Chest pain / pressure Respiratory: denies: Dyspnea GI: denies: Abdominal Pain : reports: Vaginal bleeding. denies: Now EGA Endocrine: denies: Easy bruising / bleeding Immunocompromised: denies: Immunocompromised PD PAST MEDICAL HISTORY - Past Medical History Cardiovascular: None Respiratory: None Neuro: None Endocrine/Autoimmune: None GI: None [employer]SHAL: None : None HEENT: None Psych: None Musculoskeletal: None Derm: None - Past Surgical History Past Surgical History: Yes General: Other /[employer]SHAL: Other - Present Medications Home Medications: Ambulatory Orders Medication Instructions Recorded Confirmed Doxycycline Hyclate 100 mg PO BID #20 capsule 03/29/18 Etonogestrel [Nexplanon] 1 03/29/18 traMADol [Ultram] 50 mg PO Q6H PRN #15 tablet 03/29/18 Hydrocodone/Acetaminophen 1 each PO Q6H PRN #10 tablet 04/20/18 [Hydrocodon-Acetaminophen 5-325] Ibuprofen [Motrin] 400 mg PO Q6H #30 tablet 04/20/18 - Allergies Allergies/Adverse Reactions: Allergies Allergy/AdvReac Type Severity Reaction Status Date / Time bee venom protein (honey bee) Allergy Anaphylaxis Verified 03/06/18 19:08 Sulfa (Sulfonamide Allergy Emesis Verified 03/29/18 09:51 Antibiotics) - Social History Does the pt smoke?: Yes Smoking Status: Current every day smoker Does the pt drink ETOH?: Yes Does the pt have substance abuse?: No - Immunizations Immunizations are current?: Yes - POLST Patient has POLST: No PD ED PE NORMAL - Vitals Vital signs reviewed: Yes - Neck Neck: Supple, no meningeal sign - Cardiac Cardiac: RRR - Respiratory Respiratory: No respiratory distress - Abdomen Abdomen: Soft, Other (TTP lower abd s rebound or guarding) - Female Female : Other (deferred as i just did pelvic with cultures for this same problem) Results - Vitals Vitals: Vital Signs - 24 hr 04/20/18 04/20/18 12:23 15:54 Temperature 36.7 C 37 C Heart Rate 85 102 H Respiratory 16 16 Rate Blood Pressure 134/80 H 158/75 H O2 Saturation 100 100 Oxygen O2 Source Room air - Labs Labs: Laboratory Tests 04/20/18 04/20/18 13:10 13:50 WBC 7.9 RBC 4.05 L Hgb 12.6 Hct 36.4 L MCV 89.9 MCH 31.1 H MCHC 34.6 RDW 14.1 Plt Count 363 MPV 7.3 L Neut # (Auto) 5.6 Lymph # (Auto) 1.8 [place] # (Auto) 0.4 Eos # (Auto) 0.0 Baso # (Auto) 0.0 Absolute Nucleated RBC 0.00 Nucleated RBC % 0.0 Urine Color LT. YELLOW Urine Clarity CLEAR Urine pH 6.0 Ur Specific [place] <=1.005 Urine Protein NEGATIVE Urine Glucose (UA) NEGATIVE Urine Ketones TRACE Urine Occult Blood SMALL H Urine Nitrite NEGATIVE Urine Bilirubin NEGATIVE Urine Urobilinogen 0.2 (NORMAL) Ur Leukocyte Esterase NEGATIVE Urine RBC 0-5 Urine WBC 0-3 Ur Squamous Epith Cells RARE Squamous Urine Bacteria Rare Ur Microscopic Review INDICATED Urine Culture Comments NOT INDICATED Urine HCG, Qual NEGATIVE - Rads (name of study) pelvic ultrasound Radiology: See rad report (collapsed right ovarian cyst, nl ovaries and uterus, no torsion) Departure - Departure Disposition: 01 Home, Self Care Clinical Impression: Ovarian cyst rupture Condition: Good Instructions: ED Cyst Ovarian Follow-Up: Sally Sheffield DO [Provider Admit Priv/Credential] - [facility] [Provider Group] Prescriptions: Hydrocodone/Acetaminophen [Hydrocodon-Acetaminophen 5-325] 1 each PO Q6H PRN #10 tablet PRN Reason: Severe Pain Ibuprofen [Motrin] 400 mg PO Q6H #30 tablet Comments: The large right ovarian cyst has ruptured The ovaries and uterus otherwise look fine The pain and bleeding should gradually subside Follow up with your doctor at [facility] or Dr Sheffield Forms: Activity restrictions
[2018-04-20 14:00] LABS: BASOPHILS % (AUTO) 0.4 %; EOSINOPHILS % (AUTO) 0.3 %; HGB - HEMOGLOBIN 12.6 g/dL (12.0-16.0); LYMPHOCYTES # (AUTO) 1.8 10^3/uL (1.5-3.5); LYMPHOCYTES % (AUTO) 22.6 %; MEAN CORPUSCULAR HEMOGLOBIN 31.1 pg (27.0-31.0); MEAN CORPUSCULAR HGB CONC 34.6 g/dL (32.0-36.0); MEAN CORPUSCULAR VOLUME 89.9 fL (81.0-99.0); MEAN PLATELET VOLUME 7.3 fL (7.9-10.8); MONOCYTES # (AUTO) 0.4 10^3/uL (0.0-1.0); MONOCYTES % (AUTO) 5.2 %; NEUTROPHILS # (AUTO) 5.6 10^3/uL (1.5-6.6); NEUTROPHILS % (AUTO) 71.5 %; PLT - PLATELET COUNT 363 10^3/uL (130-450); RED BLOOD COUNT 4.05 10^6/uL (4.20-5.40); RED CELL DISTRIBUTION WIDTH 14.1 % (12.0-15.0); WHITE BLOOD COUNT 7.9 x10^3/uL (4.8-10.8)
[2018-04-20] MEDS ORDERED: oxyCODONE 5 MG TABLET PO STA (16:07)
--- NOTE | 2018-04-20 16:41 | Ultrasound Report ---
Reason: severe pelvic pain vag bleed Procedure Date: 04/20/2018 Accession Number: [id number] / [id number] Procedure: US - Pelvic w/Transvag+Doppler Comp CPT Code: FULL RESULT: EXAM: PELVIC ULTRASOUND WITH DOPPLERS CLINICAL HISTORY: Severe pelvic pain vag bleed. COMPARISON: PEL NON OB W/TV DOP 03/29/2018 12:10 PM TECHNIQUE: Realtime transabdominal imaging performed to identify the uterus and adnexa and as an overview of other pelvic structures, followed by transvaginal imaging for better assessment of the endometrium and adnexa, with static image documentation. Color flow imaging and Doppler spectral analysis was performed to evaluate blood flow to the ovaries given pelvic pain and bleeding. FINDINGS: Uterus: 6.2 x 2.6 x 4.7 cm, volume 39 cc. Anteverted position. Normal overall size and echotexture. Masses: None. Endometrium: 1.2 mm. Normal. Cervix: Unremarkable. Right Ovary: 4 x 1.8 x 2.3 cm, volume 8.9 cc. There is a partially collapsed cyst or follicle in the right ovary measuring 1.4 x 0.7 cm. Arterial and venous blood flow are present. Adnexa are unremarkable. Left Ovary: 3.2 x 1.8 x 2.1 cm, volume 6.3 cc. Normal echotexture. Arterial and venous blood flow are present. Adnexa are unremarkable. Free Fluid: None visualized. Other: None. IMPRESSION: 1. Both ovaries are visualized and normal in size. Arterial and venous blood flow present in both ovaries. 2. Partially collapsed follicle or cyst in right ovary. 3. Uterus appears within normal limits. RADIA
[2018-04-20 17:34] VITALS: BP 125/79
== END 2018-04-20 17:39 | disposition home or self-care (01) ==
LOC: ED 12:20
DX: N83.201 Unspecified ovarian cyst, right side (principal); F17.200 Nicotine dependence, unspecified, uncomplicated
CPT/HCPCS: 36415; 76830; 76856; 81001; 81025; 85025; 93975; 96372; 99283; A9270; 81003; 87086

== ENCOUNTER 2019-08-30 17:28 | Emergency (ER) | payer OTHER ==
[2019-08-30 17:48] LABS: BILIRUBIN,URINE NEGATIVE (NEGATIVE); GLUCOSE, URINE (UA) NEGATIVE (NEGATIVE); KETONES,URINE (UA) NEGATIVE (NEGATIVE); LEUKOCYTE ESTERASE, URINE NEGATIVE (NEGATIVE); NITRITE,URINE NEGATIVE (NEGATIVE); OCCULT BLOOD,URINE SMALL (NEGATIVE); PH,URINE 7.5 PH (5.0-7.5); PROTEIN,URINE NEGATIVE (NEGATIVE); UROBILINOGEN,URINE 0.2 (NORMAL) E.U./dL (NORMAL)
[2019-08-30 17:51] LABS: CLARITY,URINE CLEAR (CLEAR); HCG UR QUAL NEGATIVE
[2019-08-30 17:52] LABS: BASOPHILS % (AUTO) 0.3 %; EOSINOPHILS # (AUTO) 0.2 10^3/uL (0.0-0.7); EOSINOPHILS % (AUTO) 1.6 %; HGB - HEMOGLOBIN 14.2 g/dL (12.0-16.0); LYMPHOCYTES # (AUTO) 3.5 10^3/uL (1.5-3.5); LYMPHOCYTES % (AUTO) 36.3 %; MEAN CORPUSCULAR HEMOGLOBIN 30.3 pg (27.0-31.0); MEAN CORPUSCULAR HGB CONC 32.9 g/dL (32.0-36.0); MEAN CORPUSCULAR VOLUME 91.9 fL (81.0-99.0); MEAN PLATELET VOLUME 8.6 fL (7.9-10.8); MONOCYTES # (AUTO) 0.7 10^3/uL (0.0-1.0); NEUTROPHILS # (AUTO) 5.3 10^3/uL (1.5-6.6); NEUTROPHILS % (AUTO) 54.5 %; PLT - PLATELET COUNT 376 10^3/uL (130-450); RED BLOOD COUNT 4.69 10^6/uL (4.20-5.40); RED CELL DISTRIBUTION WIDTH 13.4 % (12.0-15.0); WHITE BLOOD COUNT 9.7 x10^3/uL (4.8-10.8)
[2019-08-30 17:59] LABS: BACTERIA,URINE None Seen /HPF (None Seen); RBC,URINE 0-5 /HPF (0-5); SQUAMOUS EPITHELIAL CELL,UR RARE Squamous (<= Few)
[2019-08-30 18:08] LABS: ALBUMIN 4.6 g/dL (3.2-5.5); ALBUMIN/GLOBULIN RATIO 1.6 (1.0-2.2); BILIRUBIN,TOTAL 0.7 mg/dL (0.2-1.0); CALCIUM 9.3 mg/dL (8.5-10.3); CREATININE 0.7 mg/dL (0.4-1.0); TOTAL PROTEIN 7.4 g/dL (6.7-8.2)
[2019-08-30] MEDS ORDERED: KETOROLAC 60 MG/2 ML VIAL IM STA (18:24)
[2019-08-30] MEDS ORDERED: HYDROmorphone 1 MG/ML CARPUJECT IM STA (18:24)
--- NOTE | 2019-08-30 18:25 | ED Physician Documentation ---
PD HPI ABD PAIN - Stated complaint Stated Complaint: FEMALE - Chief complaint Chief Complaint: Abd Pain - History obtained from History obtained from: Patient - History of Present Illness Timing - onset: Other (23-year-old woman with history of ovarian torsion presents with pelvic pain starting about 4-5 days ago. It is with her menses. She has a Nexplanon in pain place. Pain goes from right to left and back. She has had some dark bleeding but no discharge otherwise. No fevers or chills. No nausea.) Review of Systems Ten Systems: 10 systems reviewed and negative Constitutional: reports: Reviewed and negative Cardiac: reports: Reviewed and negative Respiratory: reports: Reviewed and negative PD PAST MEDICAL HISTORY - Past Medical History Cardiovascular: None Respiratory: None Neuro: None Endocrine/Autoimmune: None GI: None BILINGUAL SOCIAL WORKER: None : None HEENT: None Psych: None Musculoskeletal: None Derm: None - Past Surgical History Past Surgical History: Yes General: Other /BILINGUAL SOCIAL WORKER: Other - Present Medications Home Medications: Ambulatory Orders Medication Instructions Recorded Confirmed Doxycycline Hyclate 100 mg PO BID #20 capsule 03/29/18 Etonogestrel [Nexplanon] 1 03/29/18 traMADol [Ultram] 50 mg PO Q6H PRN #15 tablet 03/29/18 Hydrocodone/Acetaminophen 1 each PO Q6H PRN #10 tablet 04/20/18 [Hydrocodon-Acetaminophen 5-325] Ibuprofen [Motrin] 400 mg PO Q6H #30 tablet 04/20/18 Ibuprofen [Motrin] 800 mg PO Q8H PRN #30 tablet 08/30/19 Oxycodone HCl/Acetaminophen 1 - 2 each PO Q6H PRN #14 tablet 08/30/19 [Percocet 5-325 mg Tablet] - Allergies Allergies/Adverse Reactions: Allergies Allergy/AdvReac Type Severity Reaction Status Date / Time bee venom protein (honey bee) Allergy Anaphylaxis Verified 08/30/19 17:31 Sulfa (Sulfonamide Allergy Emesis Verified 08/30/19 17:31 Antibiotics) - Social History Does the pt smoke?: Yes Smoking Status: Current every day smoker Does the pt drink ETOH?: Yes Does the pt have substance abuse?: No - Immunizations Immunizations are current?: Yes - POLST Patient has POLST: No PD ED PE NORMAL - Vitals Vital signs reviewed: Yes - General General: Alert and oriented X 3, No acute distress - Respiratory Respiratory: No respiratory distress, Clear bilaterally - Abdomen Abdomen: Normal bowel sounds, Soft, Non tender - Extremities Extremities: No edema, No calf tenderness / cord - Neuro Neuro: Alert and oriented X 3, Normal speech Results - Vitals Vitals: Vital Signs - 24 hr 08/30/19 08/30/19 08/30/19 17:31 17:47 19:34 Temperature 36.6 C Heart Rate 70 80 72 Respiratory 14 18 18 Rate Blood Pressure 128/85 H 130/78 O2 Saturation 99 100 99 Oxygen O2 Source Room air - Labs Labs: Laboratory Tests 08/30/19 08/30/19 08/30/19 17:35 17:46 17:46 WBC 9.7 RBC 4.69 Hgb 14.2 Hct 43.1 MCV 91.9 MCH 30.3 MCHC 32.9 RDW 13.4 Plt Count 376 MPV 8.6 Neut # (Auto) 5.3 Lymph # (Auto) 3.5 [place] # (Auto) 0.7 Eos # (Auto) 0.2 Baso # (Auto) 0.0 Absolute Nucleated RBC 0.00 Nucleated RBC % 0.0 Sodium 138 Potassium 3.5 Chloride 104 Carbon Dioxide 25 Anion Gap 9.0 BUN 11 Creatinine 0.7 Estimated GFR (MDRD) 105 Glucose 72 Calcium 9.3 Total Bilirubin 0.7 AST 29 ALT 40 Alkaline Phosphatase 70 Total Protein 7.4 Albumin 4.6 Globulin 2.8 Albumin/Globulin Ratio 1.6 Lipase 30 Urine Color YELLOW Urine Clarity CLEAR Urine pH 7.5 Ur Specific [place] 1.010 Urine Protein NEGATIVE Urine Glucose (UA) NEGATIVE Urine Ketones NEGATIVE Urine Occult Blood SMALL H Urine Nitrite NEGATIVE Urine Bilirubin NEGATIVE Urine Urobilinogen 0.2 (NORMAL) Ur Leukocyte Esterase NEGATIVE Urine RBC 0-5 Urine WBC 0-3 Ur Squamous Epith Cells RARE Squamous Urine Bacteria None Seen Ur Microscopic Review INDICATED Urine Culture Comments NOT INDICATED Urine HCG, Qual NEGATIVE - Rads (name of study) Pelvic sonogram Radiology: Discussed with rads PD MEDICAL DECISION MAKING - ED course ED course: 23-year-old woman with recurrent pelvic pain, found today to have decent size left ovarian cyst. No evidence of torsion, no evidence of PID. Departure - Departure Disposition: 01 Home, Self Care Clinical Impression: Pelvic pain Ovarian cyst Qualifiers: Laterality: left Qualified Code(s): N83.202 - Unspecified ovarian cyst, left side Condition: Good Record reviewed to determine appropriate education?: Yes Instructions: ED Pelvic Pain [facility] Prescriptions: Ibuprofen [Motrin] 800 mg PO Q8H PRN #30 tablet PRN Reason: PAIN &/OR FEVER Oxycodone HCl/Acetaminophen [Percocet 5-325 mg Tablet] 1 - 2 each PO Q6H PRN #14 tablet PRN Reason: pain Comments: You were seen today for pelvic pain, it was found that you do have another left ovarian cyst, there actually 2, a smaller tiny cyst measuring 1.5 x 1.3 x 1.1 cm and a larger cyst measuring 3.8 x 3.8 x 4.5 cm. There is no evidence of torsion. Return for new or worsening symptoms. [place]
[2019-08-30] MEDS ORDERED: oxyCODONE 5 MG TABLET PO STA (20:40)
[2019-08-30] MEDS ORDERED: IBUPROFEN 800 MG TABLET PO STA (20:40)
--- NOTE | 2019-08-30 20:41 | Ultrasound Report ---
Reason: pelvic pain, R Procedure Date: 08/30/2019 Accession Number: [id number] / [id number] Procedure: US - Pelvic w/Transvag+Doppler Comp CPT Code: Final Report FULL RESULT: EXAM: PELVIC ULTRASOUND WITH DOPPLERS CLINICAL HISTORY: Pelvic pain, R. COMPARISON: PEL NON OB W/TV DOP 03/29/2018 12:10 PM TECHNIQUE: Realtime transabdominal imaging performed to identify the uterus and adnexa and as an overview of other pelvic structures, followed by transvaginal imaging for better assessment of the endometrium and adnexa, with static image documentation. Color flow imaging and Doppler spectral analysis was performed to evaluate blood flow to the ovaries given pelvic pain and clinical concern for ovarian torsion. FINDINGS: Uterus: 7.9 x 2.7 x 3.8 cm, volume 43.2 cc. Anteverted position. Normal overall size and echotexture. Masses: None. Endometrium: 3 mm. Normal. Cervix: Unremarkable. Right Ovary: 1.7 x 1.8 x 2.6 cm, volume 4.3 cc. Normal echotexture. Arterial and venous blood flow are present. Adnexa are unremarkable. Left Ovary: 4.7 x 3.7 x 4.7 cm, volume 42.4 cc. Normal echotexture. Arterial and venous blood flow are present. There is a complex large cyst with septation measuring 3.8 x 3.8 x 4.5 and a smaller complex cyst with septation measuring 1.5 x 1.3 x 1.1 cm. Free Fluid: None. Other: None. IMPRESSION: 1. Normal pelvic ultrasound. 2. Arterial and venous blood flow are present to the ovaries bilaterally. 3. Two Complex cysts in left ovary, larger measures 3.8 x 3.8 x 4.5 cm. This age group the cysts are likely to be physiological. No follow-up imaging recommended in cysts less than 7 cm. RADIA
[2019-08-30] MEDS ORDERED: oxyCODONE/ACET 5/325 Prepack 4 PO STA (20:51)
[2019-08-30 21:00] VITALS: BP 170/80
== END 2019-08-30 21:02 | disposition home or self-care (01) ==
LOC: ED 17:28
DX: R10.2 Pelvic and perineal pain (principal); N83.202 Unspecified ovarian cyst, left side; F17.200 Nicotine dependence, unspecified, uncomplicated
CPT/HCPCS: 36415; 76830; 76856; 80053; 81001; 81025; 83690; 85025; 93975; 96372; 99284; A9270; J1170; 81003; 87086

== ENCOUNTER 2019-09-18 07:00 | Outpatient (CLI) | payer OTHER ==
[2019-09-18 21:44] LABS: TRICHOMONAS VAGINALIS DNA NEGATIVE (NEGATIVE)
== END 2019-09-18 23:59 | disposition home or self-care (01) ==
LOC: LAB.R 07:00
PROVIDERS: ATTEND Obstetrics & Gynecology
DX: R10.2 Pelvic and perineal pain (principal)
CPT/HCPCS: 87491; 87591; 87661

== ENCOUNTER 2019-10-26 09:17 | Outpatient (CLI) | payer OTHER ==
--- NOTE | 2019-10-26 11:44 | Ultrasound Report ---
PROCEDURE: Pelvic w/Transvaginal INDICATIONS: R SIDE OVARIAN CYST TECHNIQUE: Real-time scanning was performed of the pelvic organs, with image documentation. Additional endovagi nal scanning was necessary due to incomplete visualization of the adnexal and endometrial structures by transabdominal scanning. COMPARISON: Prior pelvic ultrasound 08/30/2019 reviewed. FINDINGS: Transabdominal scanning: Limited scanning through the kidneys shows no hydronephrosis. No pathologi c free abdominal or pelvic fluid. Endovaginal scanning: Uterus: Uterus is normal in size at 3.1 x 4.1 x 8.2 cm. The endometrium measures 4 mm in combined t hickness. Ovaries: The right ovary measures 2.7 x 4.1 x 4.9 cm and the left measures 1.8 x 2.0 x 4.2 cm. There is an involuting left ovarian cyst that measures up to 2.7 cm. IMPRESSION: Involuting left ovarian cyst measures 2.7 cm in maximal dimension. There is a dominant cyst right ova ry measuring up to 2.5 x 2.9 cm. This contains a small marginal cyst as an incidental finding. The pr ior ultrasound from August of this year had described a dominant left ovarian cyst measuring up to 4.5 c m, which has largely resolved. Reviewed by: Hay Obando MD on 10/26/2019 11:43 AM PDT Approved by: Hay Obando MD on 10/26/2019 11:43 AM PDT Station ID: [id number]
== END 2019-10-26 09:18 | disposition home or self-care (01) ==
LOC: DI 09:17
PROVIDERS: ATTEND Obstetrics & Gynecology
DX: N83.202 Unspecified ovarian cyst, left side (principal); N83.201 Unspecified ovarian cyst, right side
CPT/HCPCS: 76830; 76856

== ENCOUNTER 2019-11-05 14:09 | Emergency (ER) | payer OTHER ==
[2019-11-05] MEDS ORDERED: KETOROLAC 30 MG/ML VIAL IVP STA (14:27)
[2019-11-05] MEDS ORDERED: MORPHINE 2 MG/ML CARPUJECT IVP STA (14:27)
[2019-11-05] MEDS ORDERED: ONDANSETRON 4 MG/2 ML VIAL IVP STA ×2 (14:27→16:20)
--- NOTE | 2019-11-05 14:29 | ED Physician Documentation ---
PD HPI ABD PAIN - Stated complaint Stated Complaint: FEMALE - Chief complaint Chief Complaint: Abd Pain - History obtained from History obtained from: Patient - Additional information Additional information: 23-year-old woman with history of recurrent ovarian cyst and history of torsion has a known right ovarian cyst based on recent ultrasonography. Last ultrasound was done 10 days ago showing a right ovarian cyst measuring 2.5 x 2.9 cm and a resolving left ovarian cyst. Over the last 3 to 4 days pain has become more severe in the right pelvis. Is associated with nausea. No vomiting. No bleeding or discharge. She doubts , there is a Nexplanon in place. Review of Systems Constitutional: reports: Reviewed and negative Cardiac: reports: Reviewed and negative Respiratory: reports: Reviewed and negative PD PAST MEDICAL HISTORY - Past Medical History Cardiovascular: None Respiratory: None Neuro: None Endocrine/Autoimmune: None GI: None INSTRUCTIONAL TECHNOLOGY INSTRUCTOR: None : None HEENT: None Psych: None Musculoskeletal: None Derm: None - Past Surgical History Past Surgical History: Yes General: Other /INSTRUCTIONAL TECHNOLOGY INSTRUCTOR: Other - Present Medications Home Medications: Ambulatory Orders Medication Instructions Recorded Confirmed Doxycycline Hyclate 100 mg PO BID #20 capsule 03/29/18 Etonogestrel [Nexplanon] 1 03/29/18 traMADol [Ultram] 50 mg PO Q6H PRN #15 tablet 03/29/18 Hydrocodone/Acetaminophen 1 each PO Q6H PRN #10 tablet 04/20/18 [Hydrocodon-Acetaminophen 5-325] Ibuprofen [Motrin] 400 mg PO Q6H #30 tablet 04/20/18 Ibuprofen [Motrin] 800 mg PO Q8H PRN #30 tablet 08/30/19 Oxycodone HCl/Acetaminophen 1 - 2 each PO Q6H PRN #14 tablet 08/30/19 [Percocet 5-325 mg Tablet] Ibuprofen [Motrin] 800 mg PO Q8H PRN #30 tablet 11/05/19 Ondansetron Odt [Zofran] 4 mg TL Q6H PRN #10 tablet 11/05/19 Oxycodone HCl/Acetaminophen 1 - 2 each PO Q6H PRN #14 tablet 11/05/19 [Percocet 5-325 mg Tablet] - Allergies Allergies/Adverse Reactions: Allergies Allergy/AdvReac Type Severity Reaction Status Date / Time bee venom protein (honey bee) Allergy Anaphylaxis Verified 11/05/19 14:11 Sulfa (Sulfonamide Allergy Emesis Verified 11/05/19 14:11 Antibiotics) - Social History Does the pt smoke?: Yes Smoking Status: Current every day smoker Does the pt drink ETOH?: Yes Does the pt have substance abuse?: No - Immunizations Immunizations are current?: Yes - POLST Patient has POLST: No PD ED PE NORMAL - Vitals Vital signs reviewed: Yes - General General: Alert and oriented X 3, No acute distress - Abdomen Abdomen: Normal bowel sounds, Soft, Non tender - Back Back: No CVA TTP, No spinal TTP - Derm Derm: Normal color, Warm and dry - Extremities Extremities: No edema, No calf tenderness / cord - Neuro Neuro: Alert and oriented X 3, Normal speech Results - Vitals Vitals: Vital Signs - 24 hr 11/05/19 11/05/19 14:11 16:15 Temperature 36.5 C 37.2 C Heart Rate 88 66 Respiratory 14 22 Rate Blood Pressure 140/93 H 130/90 H O2 Saturation 99 99 Oxygen O2 Source Room air - Labs Labs: Laboratory Tests 11/05/19 11/05/19 11/05/19 14:21 14:38 14:38 WBC 10.0 RBC 4.78 Hgb 14.6 Hct 42.6 MCV 89.1 MCH 30.5 MCHC 34.3 RDW 12.8 Plt Count 355 MPV 9.2 Neut # (Auto) 5.5 Lymph # (Auto) 3.5 [place] # (Auto) 0.8 Eos # (Auto) 0.1 Baso # (Auto) 0.0 Absolute Nucleated RBC 0.00 Nucleated RBC % 0.0 Sodium 138 Potassium 3.2 L Chloride 102 Carbon Dioxide 25 Anion Gap 11.0 BUN 8 Creatinine 0.9 Estimated GFR (MDRD) 78 L Glucose 110 H Calcium 9.9 Total Bilirubin 0.6 AST 25 ALT 20 Alkaline Phosphatase 74 Total Protein 8.8 H Albumin 5.4 Globulin 3.4 Albumin/Globulin Ratio 1.6 Lipase 33 Urine Color YELLOW Urine Clarity CLEAR Urine pH 7.0 Ur Specific [place] 1.015 Urine Protein NEGATIVE Urine Glucose (UA) NEGATIVE Urine Ketones NEGATIVE Urine Occult Blood NEGATIVE Urine Nitrite NEGATIVE Urine Bilirubin NEGATIVE Urine Urobilinogen 0.2 (NORMAL) Ur Leukocyte Esterase NEGATIVE Ur Microscopic Review NOT INDICATED Urine Culture Comments NOT INDICATED Urine HCG, Qual NEGATIVE - Rads (name of study) Pelvic sono Radiology: EMP read contemporaneously (Right ovarian cyst now measuring 4.4 x 3.1 x 4.2 cm.) PD MEDICAL DECISION MAKING - ED course ED course: 23-year-old woman presents with worsening pelvic pain, known right ovarian cyst. Ultrasound demonstrates no evidence of torsion, but the cyst is enlarging. 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 Her pain was not too hard to control here. Departure - Departure Disposition: Home, Self Care Clinical Impression: Ovarian mass, right Condition: Good Record reviewed to determine appropriate education?: Yes Instructions: ED Cyst Ovarian Follow-Up: Jarrod Zapata MD [Provider Admit Priv/Credential] - Prescriptions: Ibuprofen [Motrin] 800 mg PO Q8H PRN #30 tablet PRN Reason: PAIN &/OR FEVER Oxycodone HCl/Acetaminophen [Percocet 5-325 mg Tablet] 1 - 2 each PO Q6H PRN #14 tablet PRN Reason: pain Ondansetron Odt [Zofran] 4 mg TL Q6H PRN #10 tablet PRN Reason: Nausea / Vomiting Comments: As discussed, there is no evidence of torsion (a twisted ovary) but your right ovarian cyst it does seem to be getting larger. I would recommend you call Dr. Zapata's office tomorrow to consider closer follow-up that is already planned. Return for new or worsening symptoms. Forms: Activity restrictions Discharge Date/Time: 11/05/19 16:39
[2019-11-05 14:36] LABS: BILIRUBIN,URINE NEGATIVE (NEGATIVE); GLUCOSE, URINE (UA) NEGATIVE (NEGATIVE); KETONES,URINE (UA) NEGATIVE (NEGATIVE); LEUKOCYTE ESTERASE, URINE NEGATIVE (NEGATIVE); NITRITE,URINE NEGATIVE (NEGATIVE); OCCULT BLOOD,URINE NEGATIVE (NEGATIVE); PROTEIN,URINE NEGATIVE (NEGATIVE); UROBILINOGEN,URINE 0.2 (NORMAL) E.U./dL (NORMAL)
[2019-11-05 14:38] LABS: CLARITY,URINE CLEAR (CLEAR); HCG UR QUAL NEGATIVE
[2019-11-05 14:59] LABS: BASOPHILS % (AUTO) 0.4 %; EOSINOPHILS # (AUTO) 0.1 10^3/uL (0.0-0.7); EOSINOPHILS % (AUTO) 1.1 %; HGB - HEMOGLOBIN 14.6 g/dL (12.0-16.0); LYMPHOCYTES # (AUTO) 3.5 10^3/uL (1.5-3.5); MEAN CORPUSCULAR HEMOGLOBIN 30.5 pg (27.0-31.0); MEAN CORPUSCULAR HGB CONC 34.3 g/dL (32.0-36.0); MEAN CORPUSCULAR VOLUME 89.1 fL (81.0-99.0); MEAN PLATELET VOLUME 9.2 fL (7.9-10.8); MONOCYTES # (AUTO) 0.8 10^3/uL (0.0-1.0); NEUTROPHILS # (AUTO) 5.5 10^3/uL (1.5-6.6); NEUTROPHILS % (AUTO) 55.2 %; PLT - PLATELET COUNT 355 10^3/uL (130-450); RED BLOOD COUNT 4.78 10^6/uL (4.20-5.40); RED CELL DISTRIBUTION WIDTH 12.8 % (12.0-15.0)
[2019-11-05 15:12] LABS: ALBUMIN 5.4 g/dL (3.2-5.5); ALBUMIN/GLOBULIN RATIO 1.6 (1.0-2.2); BILIRUBIN,TOTAL 0.6 mg/dL (0.2-1.0); CALCIUM 9.9 mg/dL (8.5-10.3); CREATININE 0.9 mg/dL (0.4-1.0); TOTAL PROTEIN 8.8 g/dL (6.7-8.2)
[2019-11-05 16:30] VITALS: BP 130/90
--- NOTE | 2019-11-05 16:57 | Ultrasound Report ---
PROCEDURE: Pelvic w/Transvag+Doppler Comp INDICATIONS: pelvic pain, Right, known cyst, torsion eval TECHNIQUE: Real-time scanning was performed of the pelvic organs, with image documentation. Additional endovagi nal scanning was necessary due to incomplete visualization of the adnexal and endometrial structures by transabdominal scanning. COMPARISON: Ultrasound pelvis, 02/27/2018, 03/29/2018, 04/19/2018, 08/30/2019 and 10/26/2019. FINDINGS: Transabdominal scanning: Limited scanning through the kidneys shows no hydronephrosis. No pathologi c free abdominal or pelvic fluid. Endovaginal scanning: Uterus: Uterus is normal in size at 8.8 x 0.3 x 3.9 cm. The endometrium measures 2 mm in combined t hickness. Ovaries: Right ovary measures 5.2 x 2.8 x 5.2 cm. There is a 4.4 x 3.1 x 4.2 cm cyst in right ovary, previously measuring 3.2 x 2.9 x 2.5 cm. Left ovary measures 2.7 x 2.2 x 2.8 cm. There is a 2.4 x 1. 4 x 1.4 cm cyst in left ovary, previously measuring 2.7 x 1.3 x 1.2 cm. IMPRESSION: 1. Bilateral ovarian cysts. The largest cyst is seen in the right ovary measuring 4.4 x 3.1 x 4.2 cm. Because of the large cyst and posterior position, the right ovary is suboptimally visualized. No def initive ovarian torsion. A follow-up is suggested in 6 weeks. 2. Normal uterus. Reviewed by: Ruth Fernandez MD on 11/05/2019 4:55 PM PDT Approved by: Ruth Fernandez MD on 11/05/2019 4:55 PM PDT Station ID: [id number]
== END 2019-11-05 16:39 | disposition home or self-care (01) ==
LOC: ED 14:09
DX: N83.201 Unspecified ovarian cyst, right side (principal); N83.202 Unspecified ovarian cyst, left side; R11.0 Nausea; F17.200 Nicotine dependence, unspecified, uncomplicated
CPT/HCPCS: 36415; 76830; 76856; 80053; 81001; 81003; 81025; 83690; 85025; 87086; 93975; 96374; 96375; 99284

== ENCOUNTER 2019-12-07 17:59 | Outpatient (CLI) | payer OTHER | END 2019-12-07 18:00 | disposition home or self-care (01) | LOC: COV 17:59 | PROVIDERS: ATTEND Obstetrics & Gynecology | DX: Z01.818 Encounter for other preprocedural examination (principal); R10.2 Pelvic and perineal pain; N83.291 Other ovarian cyst, right side; Z20.828 Contact with and (suspected) exposure to other viral communicable diseases ==

== ENCOUNTER 2019-12-13 06:32 | Day surgery (SDC) | payer OTHER ==
[~2019-12-13 06:32] MED LIST: ACETAMINOPHEN 1,000 MG/100 ML 100 ML IV ONE; CELECOXIB 100 MG CAPSULE PO ONE; GABAPENTIN 400 MG CAPSULE ONE
[2019-12-13 06:58] LABS: HCG UR QUAL NEGATIVE
[2019-12-13] MEDS ORDERED: LACTATED RINGERS 1,000 ML IV ONE ×2 (07:08→10:39)
--- NOTE | 2019-12-13 07:20 | ANESTHESIA ---
Pre-Anesthesia VS, & Labs - Diagnosis pelvic pain, right cyst - Procedure Diagnostic laparoscopy Vital Signs: Temp Pulse Resp BP Pulse Ox 36.5 C 79 16 126/67 100 12/13/19 06:53 12/13/19 06:53 12/13/19 06:53 12/13/19 06:53 12/13/19 06:53 Height 5 ft 5 in Weight (kg) 84.2 kg Body Mass Index 28.4 - NPO >8 hours - Is Patient ?: No - Lab Results Current Lab Results: Laboratory Tests 12/13/19 07:05: POC Whole Bld Glucose 95 Lab results reviewed: Yes Home Medications and Allergies Home Medications: Ambulatory Orders Acetaminophen [Tylenol] 650 mg PO Q6H PRN 12/06/19 Etonogestrel [Nexplanon] 1 applic TOP ONCE 03/29/18 Acetaminophen [Tylenol] 650 mg PO Q6H PRN 12/06/19 Allergies/Adverse Reactions: Allergies Allergy/AdvReac Type Severity Reaction Status Date / Time bee venom protein (honey bee) Allergy Anaphylaxis Verified 11/05/19 14:11 milk Allergy Emesis Verified 12/06/19 08:04 Sulfa (Sulfonamide Allergy Emesis Verified 11/05/19 14:11 Antibiotics) egg AdvReac constipatio Verified 12/06/19 08:04 n Anes History & Medical History - Anesthetic History Anesthesia Complications: reports: No previous complications Family history of Anesthesia Complications: Denies Family history of Malignant Hyperthermia: Denies - Medical History Cardiovascular: reports: None Pulmonary: reports: None Gastrointestinal: reports: None Urinary: reports: None Neuro: reports: None Musculoskeletal: reports: None Endocrine/Autoimmune: reports: None Blood Disorders: reports: None Skin: reports: None Smoking Status: Current every day smoker - Surgical History General: Other Gynecologic: Other Exam General: Alert, Oriented x3, Cooperative, No acute distress Dental: WNL Mouth Openin Fingerbreadth Neck Mobility: Normal Mallampati classification: II Respiratory: Lungs clear, Normal breath sounds, No respiratory distress, No accessory muscle use Cardiovascular: Regular rate, Normal S1, Normal S2, No murmurs Plan Anesthesia Type: General Consent for Procedure(s) Verified and Reviewed: Yes Code Status: Attempt Resuscitation ASA classification: 1-Healthy patient Is this case an emergency?: No
[2019-12-13] MEDS ORDERED: METOCLOPRAMIDE 10 MG/2 ML VIAL IVP PRN (07:22)
[2019-12-13] MEDS ORDERED: MORPHINE 2 MG/ML CARPUJECT IVP PRN (07:22)
[2019-12-13] MEDS ORDERED: ONDANSETRON 4 MG/2 ML VIAL IVP PRN ×2 (07:22→10:43)
[2019-12-13] MEDS ORDERED: ATROPINE ABBOJECT 1 MG/10 ML SYRINGE IVP PRN (07:22)
[2019-12-13] MEDS ORDERED: NALOXONE 0.4 MG/ML VIAL IVP PRN (07:22)
[2019-12-13] MEDS ORDERED: ePHEDrine 50 MG/ML VIAL IVP PRN (07:22)
[2019-12-13] MEDS ORDERED: HYDROmorphone 0.5 MG/0.5 ML SYRINGE IVP PRN ×2 (07:22→10:43)
[2019-12-13] MEDS ORDERED: BUPIVACAINE 0.25%-EPI 1:200000 PF 30 ML VIAL ONE (07:25)
[2019-12-13] MEDS ORDERED: LACTATED RINGERS 1,000 ML IV SCH (08:00)
[2019-12-13] MEDS ORDERED: PROPOFOL 200 MG/20 ML VIAL IVP ONE (08:12)
[2019-12-13] MEDS ORDERED: DEXAMETHASONE 4 MG/ML VIAL IVP ONE (08:12)
[2019-12-13] MEDS ORDERED: fentaNYL 100 MCG/2 ML VIAL IVP ONE (08:12)
[2019-12-13] MEDS ORDERED: ROCURONIUM 50 MG/5 ML VIAL IVP ONE (08:12)
[2019-12-13] MEDS ORDERED: GLYCOPYRROLATE 1 MG/5 ML VIAL IVP ONE (08:12)
[2019-12-13] MEDS ORDERED: ONDANSETRON 4 MG/2 ML VIAL IVP ONE (08:12)
[2019-12-13] MEDS ORDERED: ACETAMINOPHEN 1,000 MG/100 ML 100 ML IV ONE (08:12)
[2019-12-13] MEDS ORDERED: NEOSTIGMINE 1 MG/1 ML 10 ML MDV IVP ONE (08:12)
[2019-12-13] MEDS ORDERED: MIDAZOLAM 2 MG/2 ML VIAL IVP ONE (08:12)
[2019-12-13] MEDS ORDERED: BUPIVACAINE 0.25%-EPI 1:200000 PF 30 ML VIAL SUBQ ONE ×2 (08:36)
[2019-12-13] MEDS ORDERED: LORazepam 2 MG/ML VIAL IVP PRN (10:43)
[2019-12-13] MEDS ORDERED: oxyCODONE 5 MG TABLET PO PRN (10:43)
[2019-12-13] MEDS: fentaNYL 100 MCG/2 ML VIAL IVP PRN ×2 (10:53→11:00)
[2019-12-13] MEDS ORDERED: fentaNYL 100 MCG/2 ML VIAL ONE (10:58)
--- NOTE | 2019-12-13 11:07 | ANESTHESIA POST OP EVALUATION ---
Anesthesia Post Eval - Post Anesthesia Eval Vitals: Last Vital Signs Temp 37.2 C 12/13/19 11:00 Pulse 71 12/13/19 11:00 Resp 20 12/13/19 11:00 BP 121/73 12/13/19 11:00 Pulse Ox 100 12/13/19 11:00 CV Function Including HR & BP: positive: Stable Pain Control: positive: Satisfactory Nausea & Vomiting: positive: Negative Mental Status: positive: Baseline Respiratory Status: Airway Patent Hydration Status: Satisfactory Anesthesia Complications: positive: None
[2019-12-13] MEDS ORDERED: ONDANSETRON 4 MG/2 ML VIAL ONE (11:14)
[2019-12-13] MEDS ORDERED: oxyCODONE 5 MG TABLET ONE (11:37)
--- NOTE | 2019-12-13 11:57 | OPERATIVE REPORT ---
Operative Report - General Procedure Date: 12/13/19 Planned Procedure: 1. Please see operative note of Dr. Zapata 2. Diagnostic laparoscopy 3. Laparoscopic adhesio lysis - pelvic 4. Other indicated procedures Pre-Op Diagnosis: Abdominal discomfort, history of ovarian torsion Procedure Performed: 1. Please see operative note of Dr. Zapata 2. Diagnostic laparoscopy 3. Laparoscopic adhesio lysis - pelvic 4. Other indicated procedures 5. Laparoscopic appendectomy with partial cecectomy 6. Extensive right lower quadrant adhesio lysis Post Op Diagnosis: Same, dense right lower quadrant adhesions, tethered appendix - Procedure Note Primary Surgeon: Benny Secondary Surgeon: Kirstin Anesthesia Provider: Alan Meléndez Anesthesia Technique: General ET tube, Local Pathology: 1. Ovarian fluid 2. Appendix with portion of cecum Indications: See electronic medical record and notes per Dr. Zapata Findings: See operative note of Dr. Méndez; tethered appendix and right lower quadrant with extensive adhesions of the fold of Treves together with the terminal ileum to the pelvic sidewall. Right ureter identified and protected throughout. Ileocecal valve intact at the conclusion of appendectomy with partial di scectomy. Hemostatic. Complications: none. - Other Other Information/Narrative: OPERATIVE PROCEDURE: Please note this was an intraoperative consultation from gynecology. Patient was undergoing diagnostic laparoscopy for chronic pain. Intraoperatively the patient was noted for right ovarian cyst which had been drained as well as dense pelvic adhesions which were addressed. An appendix was noted retrocecal along with tethering and dense right lower quadrant adhesions and general surgery was called for intraoperative consultation. Patient was already established for pneumoperitoneum with 3 5 mm ports as follows: 1. Umbilical 2. Left lower quadrant 3. Right lower quadrant At this time the patient was placed in Trendelenburg position with right side up and we proceeded to isolate the cecum which was densely adhered to the sidewall. We proceeded to upsize the left lower quadrant trocar to a 12 mm. Thereafter we added a suprapubic 5 mm trocar taking care to avoid any injury. Both trochars were inserted under direct laparoscopic visualization. Please note the bladder although decompressed preoperatively was also well within view and no injury was caused intraoperatively. The appendix was continued to be mobilized and thereafter we achieved mobilization medially taking care to note the location of the ureter which was protected and identified throughout the entirety at this case especially given the extent of the patients inflammatory changes. Ultimately the cecum was isolated free, and the appendix was thereafter completely mobilized off the abdominal and pelvic sidewall. At this time there were dense adhesions noted of the appendix to the ascending colon and cecum and this required careful dissection as well, both blunt and also using the suction radiology transcriptionist and Bovie electrocautery. At this time a [place] was used to dissect the cecal-appendiceal junction and thereafter using a ENDOGIA linear cutting stapler, the appendix was divided at the base to include portion at the cecum. The ileocecal valve was identified and protected throughout with no involvement. Please note there were dense adhesions to the right lower quadrant which were carefully lysed using laparoscopic electrocautery. There was no injury to the hollow viscus I the patient was also noted for extensive adhesions of the and appendix which required careful laparoscopic adhesio lysis both with countertraction and electrocautery. At this time, we continued to mobilize the appendix off the ascending colon and caecum making sure there was no inadvertent injury to the ascending colon and the cecum which was again densely adhered to the appendix. This was performed with great care using blunt as well as laparoscopic LigaSure device. The mesoappendix was addressed with the laparoscopic LigaSure device which was hemostatic. Dissection and ultimately isolated and dissected free the appendix which was placed into an Endo Catch bag for control of any further spillage. The appendiceal staple line and mesoappendix ligation and ligature were evaluated and hemostatic. At this time, we extensively irrigated the abdomen aspirated clear. We used a Doug-Pranav to close the left lower quadrant 12 mm trocar under direct visualization with a cxceby-ru-idnle of 0 Vicryl. At this time all trochars, secondary, were removed under direct laparoscopic visualization with no consequent bleeding. All skin and subcutaneous tissue was reapproximated with a subcuticular of 4-0 Monocryl. Wounds were dressed with Dermabond. I was present for the entirety of this operative intervention patient tolerated procedure well which is no complication. All counts were sponges needles and instruments were correct at the conclusion of this operative case.
[2019-12-13 12:16] VITALS: BP 104/50
--- NOTE | 2019-12-13 21:19 | OPERATIVE REPORT ---
Operative Report - General Procedure Date: 12/13/19 Planned Procedure: Diagnostic laparoscopy with lysis of adhesions. Pre-Op Diagnosis: Noncyclic pelvic pain suspect adhesions Procedure Performed: Diagnostic laparoscopy lysis of adhesions appendectomy drainage of right ovarian cyst excision of endometriosis on the right ovary Post Op Diagnosis: Right-sided appendiceal adhesions right ovarian cyst right ovarian endometr - Procedure Note Primary Surgeon: Jarrod Zapata MD Secondary Surgeon: Bud Burden MD Anesthesia Provider: Alan Meléndez CRNA Anesthesia Technique: General ET tube Pathology: Right ovarian endometriosis, Appendix, Fluidd from right ovarian cyst. Estimated Blood Loss (mL): 15 Findings: 4 cm right ovarian cyst with clear straw-colored fluid. Evidence of an endometriotic lesion on the external portion of the cervix. There are adhesions on the left colon. There was also adhesions of the right appendix to the right pelvic sidewall. Both tubes appear to be free of disease.
--- NOTE | 2019-12-14 07:51 | OPERATIVE REPORT ---
DATE OF SERVICE: 12/13/2019 Physician: Jarrod Zapata MD PREOPERATIVE DIAGNOSES 1. Noncyclic right-sided pelvic pain. 2. History of torsion of the right ovary. 3. History of chlamydial infection. POSTOPERATIVE DIAGNOSES 1. Adhesions of the right appendix to the right sidewall. 2. A 4 cm right ovarian cyst with clear fluid. 3. Right ovarian endometriosis, as well as minimal left-sided pelvic adhesions. 4. Fallopian tubes appeared to be normal. FINDINGS: Right-sided pelvic adhesions. PROCEDURE: Diagnostic laparoscopy with excision of right ovarian endometrioma, drainage of right ovarian cyst, lysis of both left and right-sided pelvic adhesions, appendectomy. SURGEON: Jarrod Zapata MD BARK TANNER: Dr. Bud Fulton. ANESTHESIA: Alan Meléndez CRNA. ANESTHETIC: General via endotracheal tube. MATERIALS SENT TO PATHOLOGY: Right ovarian cyst fluid, right ovarian endometriosis, appendix. PROCEDURE: Following adequate endotracheal anesthesia, the patient was placed in dorsal lithotomy position in [facility]. At this point, she was prepped and draped in the usual fashion. Timeout was then performed. A speculum was placed in the vagina. The cervix was visualized, grasped with a single-tooth tenaculum. The cervix was then dilated up to 8 mm. A HUMI catheter was then placed in the cervix and inflated. The overedge machine operator's gloves were changed. At this point, following local anesthesia, a stab wound was made in the subumbilical area. A #11 blade was used to create a vertical incision. At this point, a 5 mm trocar and sheath were introduced in the abdominal cavity. Two additional trocars and sheaths were placed in the left as well as the right lower quadrant. These were done through her previous laparoscopic incision sites. At this point, the pelvis was inspected in its entirety. There was a cyst on the right ovary. There were also some filmy adhesions on the left-hand side; these were taken down with LigaSure as well as blunt dissection. The ovarian cyst was drained of 30 mL of straw-colored fluid. At this point, there was endometriosis noted on the right ovary; this was excised with the LigaSure. This opened the ovarian cyst, allowed it to completely drain. The appendix was inspected, and there was evidence of adhesions. Surgery was consulted at this time. They felt that this potentially could be a chronic appendicitis and felt that excision was the best procedure. This procedure was done by Dr. Bud Fulton. His dictation will appear separately. At this point, at the end of the procedure, there was evidence of good hemostasis. The pelvis as well as the appendiceal area were irrigated with copious amount of sterile saline. The right lower quadrant that had been extended by Dr. Fulton was then closed with a Doug-Pranav. The incisions were both closed subcuticularly with 4-0 Monocryl, and then Dermabond was used topically. The HUMI catheter was removed from the cervix. Patient tolerated the procedure well and was taken to recovery in stable condition. Sponge and needle counts were correct. TD: 12/13/2019 21:32 ROD
== END 2019-12-13 06:33 | disposition home or self-care (01) ==
LOC: SDS 06:32
PROVIDERS: ATTEND Obstetrics & Gynecology
PROC: 0U904ZZ Drainage of Right Ovary, Percutaneous Endoscopic Approach (ICD-10-PCS; 2019-12-13)
PROC: 0DTJ4ZZ Resection of Appendix, Percutaneous Endoscopic Approach (ICD-10-PCS; 2019-12-13)
PROC: 0UB04ZZ Excision of Right Ovary, Percutaneous Endoscopic Approach (ICD-10-PCS; principal; 2019-12-13 07:30)
DX: R10.2 Pelvic and perineal pain (principal); N80.1 Endometriosis of ovary; N73.6 Female pelvic peritoneal adhesions (postinfective); N83.201 Unspecified ovarian cyst, right side; K38.9 Disease of appendix, unspecified
CPT/HCPCS: 44970; 49322; 58662; 81025; A9270; J0131; J1170; J7120

== ENCOUNTER 2019-12-17 09:33 | Outpatient (CLI) | payer OTHER ==
[2019-12-17 09:53] LABS: HGB - HEMOGLOBIN 13.5 g/dL (12.0-16.0); MEAN CORPUSCULAR HGB CONC 32.7 g/dL (32.0-36.0); MEAN CORPUSCULAR VOLUME 91.8 fL (81.0-99.0); MEAN PLATELET VOLUME 8.9 fL (7.9-10.8); RED BLOOD COUNT 4.5 10^6/uL (4.20-5.40); RED CELL DISTRIBUTION WIDTH 13.2 % (12.0-15.0); WHITE BLOOD COUNT 7.9 x10^3/uL (4.8-10.8)
== END 2019-12-17 09:34 | disposition home or self-care (01) ==
LOC: LAB 09:33
PROVIDERS: ATTEND Obstetrics & Gynecology
DX: N93.9 Abnormal uterine and vaginal bleeding, unspecified (principal)
CPT/HCPCS: 36415; 85027

== ENCOUNTER 2020-02-17 21:37 | Emergency (ER) | payer OTHER ==
[2020-02-17] MEDS ORDERED: HYDROcod/ACETAM 5/325 MG TABLET PO STA (22:07)
[2020-02-17] MEDS ORDERED: methocarbamoL 500 MG TABLET PO STA (22:07)
[2020-02-17] MEDS ORDERED: NAPROXEN 250 MG TABLET PO STA (22:07)
[2020-02-17 22:22] LABS: BILIRUBIN,URINE NEGATIVE (NEGATIVE); GLUCOSE, URINE (UA) NEGATIVE (NEGATIVE); KETONES,URINE (UA) NEGATIVE (NEGATIVE); LEUKOCYTE ESTERASE, URINE NEGATIVE (NEGATIVE); NITRITE,URINE NEGATIVE (NEGATIVE); OCCULT BLOOD,URINE NEGATIVE (NEGATIVE); PROTEIN,URINE NEGATIVE (NEGATIVE); UROBILINOGEN,URINE 0.2 (NORMAL) E.U./dL (NORMAL)
[2020-02-17 22:26] LABS: CLARITY,URINE CLEAR (CLEAR); HCG UR QUAL NEGATIVE
[2020-02-17] MEDS ORDERED: HYDROcod/ACET 5/325 Prepack 4 PO STA (22:31)
--- NOTE | 2020-02-17 22:31 | ED Physician Documentation ---
PD HPI BACK PAIN - Stated complaint Stated Complaint: BACK PX - Chief complaint Chief Complaint: Back Pain - History obtained from History obtained from: Patient - History of Present Illness Timing - onset: Today (noted low back/sacral pain when awoke this morning.) Location: Lower, Other (midline with feeling of radiation to the pelvic area and upper thighs, but not tender in abdomen.) Quality: Pain, Other (tightness) Associated symptoms: No: Fever, Weakness, Numbness Worsened by: Movement, Twisting Contributing factors: No: Lifting, Trauma Similar symptoms before: Has not had sx before (history of pelvic adhesions, cysts, appendicitis and states the current back pain does not feel like those.) Recently seen: Not recently seen Review of Systems Constitutional: denies: Fever, Chills Nose: denies: Rhinorrhea / runny nose, Congestion Throat: denies: Sore throat Respiratory: denies: Cough GI: denies: Nausea, Vomiting, Diarrhea Skin: denies: Rash Musculoskeletal: reports: Back pain. denies: Neck pain Neurologic: reports: Numbness (feeling some tingling in both upper anterior thighs. Denies genital numbness.). 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 : None HEENT: None Psych: None Musculoskeletal: None Derm: None - Past Surgical History Past Surgical History: Yes General: Other /SPANISH MOSS PICKER: Other - Present Medications Home Medications: Ambulatory Orders Medication Instructions Recorded Confirmed Etonogestrel [Nexplanon] 1 applic TOP ONCE 03/29/18 12/13/19 Ibuprofen [Motrin] 800 mg PO Q8H PRN #30 tablet 11/05/19 12/13/19 Acetaminophen [Tylenol] 650 mg PO Q6H PRN 12/06/19 12/13/19 Hydrocodone/Acetaminophen 1 each PO Q6H PRN #12 tablet 02/17/20 [Hydrocodone-Acetamin 5-325 mg] methocarbamoL [Robaxin] 500 mg PO Q6H PRN #20 tablet 02/17/20 - Allergies Allergies/Adverse Reactions: Allergies Allergy/AdvReac Type Severity Reaction Status Date / Time bee venom protein (honey bee) Allergy Anaphylaxis Verified 11/05/19 14:11 milk Allergy Emesis Verified 08/20/20 08:04 Sulfa (Sulfonamide Allergy Emesis Verified 11/05/19 14:11 Antibiotics) egg AdvReac constipatio Verified 12/06/19 08:04 n - Social History Does the pt smoke?: Yes Smoking Status: Current every day smoker Does the pt drink ETOH?: Yes Does the pt have substance abuse?: No - Immunizations Immunizations are current?: Yes - POLST Patient has POLST: No PD ED PE NORMAL - Vitals Vital signs reviewed: Yes - General General: Alert and oriented X 3, Well developed/nourished - Cardiac Cardiac: RRR, No murmur - Respiratory Respiratory: Clear bilaterally - Abdomen Abdomen: Soft, Non tender, Non distended - Back Back: No CVA TTP, Other (tender in upper to mid sacral area midline without rash/redness/swelling. Not tender in coccygeal area.) - Derm Derm: Normal color, Warm and dry Results - Vitals Vitals: Vital Signs - 24 hr 02/17/20 02/17/20 21:38 22:43 Temperature 36.5 C 36.4 C L Heart Rate 91 60 Respiratory 18 16 Rate Blood Pressure 145/76 H 117/62 O2 Saturation 100 97 Oxygen O2 Source Room air - Labs Labs: Laboratory Tests 02/17/20 22:08 Urine Color LIGHT YELLOW Urine Clarity CLEAR Urine pH 6.0 Ur Specific [place] <=1.005 Urine Protein NEGATIVE Urine Glucose (UA) NEGATIVE Urine Ketones NEGATIVE Urine Occult Blood NEGATIVE Urine Nitrite NEGATIVE Urine Bilirubin NEGATIVE Urine Urobilinogen 0.2 (NORMAL) Ur Leukocyte Esterase NEGATIVE Ur Microscopic Review NOT INDICATED Urine Culture Comments NOT INDICATED Urine HCG, Qual NEGATIVE PD MEDICAL DECISION MAKING - ED course Complexity details: considered differential (With range of motion. It radiates to the abdomen but there is no abdominal tenderness. Her symptoms sound like musculoskeletal sacral pain with nerve irritation to the thighs. No weakness or incontinence. No tenderness or redness in the coccygeal area to suggest pilonidal. tx as musculoskeletal.), d/w patient Departure - Departure Disposition: Home, Self Care Clinical Impression: Sacral back pain Condition: Stable Record reviewed to determine appropriate education?: Yes Instructions: ED Low Back Pain Injury Follow-Up: JAVI BECKER MD [Primary Care Provider] - Prescriptions: Hydrocodone/Acetaminophen [Hydrocodone-Acetamin 5-325 mg] 1 each PO Q6H PRN #12 tablet PRN Reason: Pain methocarbamoL [Robaxin] 500 mg PO Q6H PRN #20 tablet PRN Reason: Spasms Comments: Your urine test is normal. No signs of blood or infection. At this point I would assume your sacral pain is musculoskeletal and treated with anti-inflammatories muscle relaxants and added pain medicine if needed. Continue with some ibuprofen 3 times a day. Add other medicines for spasm and pain as needed. Heat and gentle stretching for the area. Less activity for a couple of days. Recheck if not better over the next 2 to 3 days. Return if other symptoms develop to suggest other causes such as abdominal pain or tenderness, fever, vomiting, difficulty urinating or with stool, etc. Forms: Activity restrictions Discharge Date/Time: 02/17/20 22:45
[2020-02-17 22:45] VITALS: BP 117/62
== END 2020-02-17 22:45 | disposition home or self-care (01) ==
LOC: ED 21:37
DX: M54.5 Low back pain (principal); F17.200 Nicotine dependence, unspecified, uncomplicated
CPT/HCPCS: 81003; 81025; 99283; 99284; A9270; 81001; 87086